=== PATIENT | female | born 1980 | race Hispanic/Latino ===

== ENCOUNTER 2018-09-22 16:31 | Observation (INO) | payer BC, SELFPAY ==
[~2018-09-22 16:31] MED LIST: ISOVUE-370 76%-LOCM 1 ML ONE
--- NOTE | 2018-09-22 17:13 | RAD ---
2 VIEW CHEST: Date: 09/22/18 HISTORY: Shortness of breath. Question PE. FINDINGS: Lung celis are clear. No infiltrate. Heart and mediastinum unremarkable. IMPRESSION: Unremarkable chest. POS: [facility]
[2018-09-22 17:31] LABS: Hemoglobin 10.2 g/dL (12.0-16.0); Mean Corpuscular HGB CONC 31.7 g/dL (32.0-36.0); Mean Corpuscular Hemoglobin 22.2 pg (27.0-31.0); Mean Corpuscular Volume 70.2 fL (78.0-98.0); Platelet Count 305 thou/uL (130-400); RBC Distribution Width 16.6 % (11.5-14.5); Red Blood Cell (RBC) Count 4.59 mill/uL (4.20-5.40); White Blood Cell (WBC) Count 8.1 thou/uL (4.8-10.8)
[2018-09-22 17:50] LABS: #Eosinphils 0.6 thou/uL (0.0-0.7); #Lymphocytes 1.7 thou/uL (1.20-3.40); #Monocytes 0.5 thou/uL (0.11-0.59); #Neutrophils 5.3 thou/uL (1.40-6.50); %Basophils 0.4 % (0.0-1.0); %Eosinophils 6.9 % (0.0-10.0); %Lymphocytes 21.3 % (21.0-51.0); %Monocytes 6.3 % (0.0-10.0); %Neutrophils 65.1 % (42.0-75.0); Anisocytosis SLIGHT = 6-15 cells (100X) (0-5/hpf); Hypochromia SLIGHT = 6-15 cells (100X) (0-5/hpf); MDiff Complete? YES; Microcytosis SLIGHT = 6-15 cells (100X) (0-5/hpf); PLT Morphology Comment Appears Adequate; Poikilocytosis SLIGHT = 6-15 cells (100X) (0-5/hpf)
[2018-09-22 17:51] LABS: ALT (SGPT) 25 U/L (8-55); AST (SGOT) 25 U/L (5-34); Albumin 4.1 g/dL (3.5-5.0); Alkaline Phosphatase 65 U/L (40-150); Anion Gap 12 mmol/L (10-20); BUN (Urea Nitrogen) 12 mg/dL (7.0-18.7); Bilirubin, Total 0.4 mg/dL (0.2-1.2); Calc. Creatinine Clearance 0 mL/min (70-130); Calcium 9.3 mg/dL (7.8-10.44); Carbon Dioxide 23 mmol/L (22-29); Chloride 107 mmol/L (98-107); Estimated GFR-MDRD 61; Globulin 3.5 g/dL (2.4-3.5); Glucose 82 mg/dL (70-105); Potassium 3.6 mmol/L (3.5-5.1); Protein, Total 7.6 g/dL (6.0-8.3); Sodium 138 mmol/L (136-145)
[2018-09-22 17:54] LABS: Troponin I Less than 0.010 ng/mL (< 0.028)
[2018-09-22 18:17] LABS: PTT 30.9 SEC (22.9-36.1); Prothrombin Time 13.4 SEC (12.0-14.7)
[2018-09-22 18:18] LABS: D-Dimer Test 0.51 *mcg/mL (0.27-0.43)
[2018-09-22 19:02] LABS: BHCG - Serum Negative (NEGATIVE); Pregs Control Background? CLEAR/WHITE (CLR/WHITE); Pregs Control Bar Appear? YES (CONTROL BAR)
--- NOTE | 2018-09-22 20:26 | CT ---
CT ANGIOGRAM CHEST WITH CONTRAST: HISTORY: Shortness of breath. COMPARISON: Radiograph from the same day. TECHNIQUE: CT angiogram chest performed after the intravenous administration of contrast, with 3D rendering prov ided. FINDINGS: Evaluation for embolism is severely limited due to the phase of contrast. With this limitation, ther e is no proximal segmental pulmonary arterial filling defect. Heart size is enlarged. No pericardia l effusion. Pulmonary trunk size is not enlarged. Aortic contour is nonaneurysmal. No significant pericardial effusion. There is reflux of contrast within the suprahepatic IVC, as well as the hepati c veins. The lungs are clear. No focal air space consolidation, pneumothorax, or effusion. No thoracic spine compression fracture. The sternum and manubrium are intact. No acute rib fracture . IMPRESSION: 1. Within the limits of this examination, no proximal segmental pulmonary arterial filling defect. 2. Abnormal reflux of contrast within the suprahepatic inferior vena cava and the hepatic vein, sugg esting some diastolic dysfunction, as well as some cardiomegaly. Non-emergent echocardiogram may be beneficial in this patient. POS: [facility]
[2018-09-22] MEDS ORDERED: Furosemide 20 MG/2 ML VIAL ONE (21:24)
[2018-09-22] MEDS ORDERED: Nitroglycerin 2% Ointment 1 INCH/1 GM Packet ONE (21:24)
--- NOTE | 2018-09-22 23:06 | PDOC.FPRHP ---
- History of Present Illness Chief Complaint: SOB History of Present Illness: 38 yo F presents for worsening SOB since Tuesday. SOB is worse with walking around and laying flat having to use multiple pillows to sleep. This past month she has been more immobilized from having to wear a boot on her right foot due to an ankle sprain. She denies any chest congestion or productive cough. Due to worsening of symptoms she went to [facility] this morning and was seen by Drs. Currie and Julia. There was concern for PE so she was advised to come to the ED for further workup. At time of admission patient denies any recent leg swelling, however she reported left sided chest pain with left arm numbness and tingling. No nausea, diaphoresis or radiation of pain. No improvement with rest or nitro paste given in ED. She has undergone a cardiac workup last hospitalization for suspected stroke which was all negative. Echo from a year ago showed diastolic dysfx with EF 55-60%. Patient also has PMH of anxiety in which she reports is well controlled on her home meds. Denies any recent life stressors. She also reports left ankle pain tender with palpation that she noticed when being examined in the ED. No redness, warmth or inc. swelling. ED Course: Lasix 20mg x1, nitro paste - Allergies/Adverse Reactions Allergies Allergy/AdvReac Type Severity Reaction Status Date / Time No Known Allergies Allergy Verified 06/16/16 19:42 - Home Medications Medication Instructions Recorded Confirmed Type Cyclobenzaprine [Flexeril] 10 mg PO HS 05/21/17 09/23/18 History Levothyroxine Sodium [Synthroid] 125 mcg PO 0600 #30 tab 05/22/17 09/23/18 Rx Citalopram [CeleXA] 10 mg PO DAILY 09/23/18 09/23/18 History Lisinopril 10 mg PO DAILY 09/23/18 09/23/18 History traMADol HCl [Ultram] 50 mg PO TID PRN 09/23/18 09/23/18 History - History PMHx: depression, anxiety, HTN, IBS, Hypothyroidism PSHx: back surgeries FHx: negative for blood clots, unrmk Social: denies etoh, drug use. Former 13 pack year history; quit 1 year ago. - Review of Systems General: denies: fever/chills, weight/appetite/sleep changes Eyes: denies: vision changes ENT: denies: nasal congestion, rhinorrhea Respiratory: reports: cough, shortness of breath. denies: congestion Cardiovascular: reports: chest pain, orthopnea. denies: palpitation, edema Gastrointestinal: denies: nausea, vomiting, diarrhea, constipation Genitourinary: denies: dysuria, discharge Skin: denies: rashes, lesions, jaundice Musculoskeletal: denies: tenderness, stiffness, swelling Neurological: denies: syncope, seizure Psychological: reports: anxiety. denies: depression - Vital signs BP: [128/93] HR: [67 RR: [31] Tmax: [98] Pox: [96]% on [RA] Wt: [129] - Physical Exam Constitutional: awake, alert and oriented, other (anxious appearing, shallow breathing) HEENT: normocephalic and atraumatic, PERRLA, EOMI, TM's clear and intact Neck: supple, FROM, trachea midline, no LAD Chest: no lesions, other (tender to palpation along left chest wall) Heart: no edema Lungs: CTAB, good air movement, no rales/rhonchi, no wheezing Abdomen: soft, non-tender Musculoskeletal: normal structure, normal tone -Musculoskeletal: tenderness along left anterior ankle, no pitting edema, both legs roughly same size equally Neurological: no focal deficit, CN II-XII intact Skin: no rash/lesions, good turgor Heme/Lymphatic: no unusual bruising or bleeding, no purpura Psychiatric: good judgment and insight FMR H&P: Results - Labs Result Diagrams: 09/23/18 01:50 09/23/18 01:50 Lab results: WBC 8.1 thou/uL (4.8-10.8) 09/22/18 17:18 Hgb 10.2 g/dL (12.0-16.0) L 09/22/18 17:18 Hct 32.2 % (36.0-47.0) L 09/22/18 17:18 MCV 70.2 fL (78.0-98.0) L 09/22/18 17:18 Plt Count 305 thou/uL (130-400) 09/22/18 17:18 Neutrophils % 65.1 % (42.0-75.0) 09/22/18 17:18 Sodium 138 mmol/L (136-145) 09/22/18 17:18 Potassium 3.6 mmol/L (3.5-5.1) 09/22/18 17:18 Chloride 107 mmol/L (98-107) 09/22/18 17:18 Carbon Dioxide 23 mmol/L (22-29) 09/22/18 17:18 BUN 12 mg/dL (7.0-18.7) 09/22/18 17:18 Creatinine 1.02 mg/dL (0.6-1.1) 09/22/18 17:18 Glucose 82 mg/dL (70-105) 09/22/18 17:18 Calcium 9.3 mg/dL (7.8-10.44) 09/22/18 17:18 Total Bilirubin 0.4 mg/dL (0.2-1.2) 09/22/18 17:18 AST 25 U/L (5-34) 09/22/18 17:18 ALT 25 U/L (8-55) 09/22/18 17:18 Alkaline Phosphatase 65 U/L (40-150) 09/22/18 17:18 B-Natriuretic Peptide 18.0 pg/mL (0-100) 09/22/18 17:18 Serum Total Protein 7.6 g/dL (6.0-8.3) 09/22/18 17:18 Albumin 4.1 g/dL (3.5-5.0) 09/22/18 17:18 - EKG Interpretation EKG: NSR - Radiology Interpretation Chest x-ray Status: image reviewed by me, report reviewed by me FMR H&P: A/P - Problem List (1) Dyspnea Current Visit: Yes Status: Acute Code(s): R06.00 - DYSPNEA, UNSPECIFIED (2) Anxiety Current Visit: Yes Status: Acute Code(s): F41.9 - ANXIETY DISORDER, UNSPECIFIED (3) Chest pain Current Visit: No Status: Acute Code(s): R07.9 - CHEST PAIN, UNSPECIFIED (4) Hypothyroid Current Visit: No Status: Chronic Code(s): E03.9 - HYPOTHYROIDISM, UNSPECIFIED (5) Obesity Current Visit: No Status: Chronic Code(s): E66.9 - OBESITY, UNSPECIFIED Qualifiers: Obesity type: due to excess calories (6) Hypertension Current Visit: Yes Status: Acute Code(s): I10 - ESSENTIAL (PRIMARY) HYPERTENSION (7) IBS (irritable bowel syndrome) Current Visit: Yes Status: Acute - Plan 1. Dysnpea due to suspected CHF exacerbation vs. anxiety -Lasix 20mg x1 in ED. Currently non-hypoxic on RA. BNP nml -Echo in 2017 showed diastolic dysfx with preserved EF at 55-60% -Will complete cardiac workup to r/o as etiology, will trend trops -Due to hx of diastolic dysfx will give lasix x1, strict I/O , daily weights, reassess with echo 2. Atypical chest pain -EKG nml, trops negative x1 -likely due to anxiety or CHF exacerbation -will trend trops to completion -will give ativan x1 3. HTN -BPs stable -continue home lisinopril 4. Hypothyroidism -home dose 150mcg, last hospital d/c dosage 175mcg -will recheck TSH since last one was 1 yr ago and adjust meds as needed -continue home meds for now 5. Anxiety -continue home citalopram 6. Depression -continue home meds 7. IBS -MD aware 8. CKD3 -Will continue to monitor dvt ppx: lovenox Dispo: <2 midnights FMR H&P: Upper Level - Pertinent history 38HF p/w concern for PE after being evaluated in [facility] this afternoon. She has had worsening SOB and RANGEL noticed by patient and family members for roughly one week now. At her appointment, it was felt she may have a PE and she was instructed to go straight to the ED for evaluation. She has been having some orthopnea and dull superficial chest pain as well. She was in a boot for a recent ankle sprain and so has been more immobile than usual. ED doc concerned for CHF given negative PE w/u. A TTE from one year ago shows diastolic dysfunction with an EF of 55-60%. Hx of anxiety attacks in the past, currently only being treated with an SSRI. ER: Lasix 20mg IV, nitro-bid 1 inch, ASA 325mg - Pertinent findings Vitals: 125/77 mmHg 67 bpm 18 breaths/m 98.5F 98% on RA Gen: mild distress from SOB CV: RRR; no murmurs Pulm: CTA-B Abd: soft; nonTTP; no guarding Skin: no pitting edema of BLE MSK: reproducible CP on palpation CXR: no acute pathology; no vascular congestion CTA chest: negative for PE EKG: NSR D-dimer: 0.51 - Plan Date/Time: 09/22/18 2372 1. Suspected CHF: Classic constellation of congestive symptoms. TTE last year showed normal EF with E/A flow reversal suggestive of diastolic dysfunction. CTA chest is negative for PE. Given her positive D-dimer and recent immobilization we will do venous US of bilateral LE. TTE for the morning to assess EF and grade of diastolic dysfunction. Strict I/O's with daily weights. Will give an additional dose of IV lasix given her continued SOB. DDX includes anxiety as she has been hospitalized twice before with stroke like symptoms. Each time her extensive w/u was negative. She was also admitted for an ACS r/o that was negative as well. Ativan PRN available upon admission. Her chest pain 2. Reproducible CP: MSK based on PE. Treat with NSAIDS. Trops negative with normal EKG and prior history of costochondritis 3. Hypothyroidism: recheck TSH and restart synthroid 4. Depression: continue home SSRI 5. Microcytic Anemia: chronic iron deficiency anemia. Hg at baseline I, Иван Benedict, have evaluated this patient and agree with findings/plan as outlined by general internal medicine doctor resident. Pertinent changes/additions are listed here. Attending Addendum - Attending Addendum Date/Time: 09/23/18 [id number] I personally evaluated the patient and discussed the management with Dr. Adams/ Jak. I agree with the History, Examination, Assessment and Plan documented above with any addition or exceptions noted below. Here for concern of HFpEF worsening and severe hypothyroidism. Echo and med mgmt as above.
[2018-09-22 23:53] LABS: Troponin I Less than 0.010 ng/mL (< 0.028)
[2018-09-23] MEDS ORDERED: Acetaminophen 325 MG TAB PO PRN (00:06)
[2018-09-23] MEDS ORDERED: Lorazepam 1 MG TAB PO PRN (00:58)
[2018-09-23] MEDS ORDERED: Nitroglycerin 0.4 MG TAB (25 Tab Bottle) SL PRN (01:06)
[2018-09-23] MEDS ORDERED: Furosemide 20 MG TAB PO SCH (01:15)
[2018-09-23 01:27] VITALS: BMI 52.0
[2018-09-23] MEDS: Acetaminophen 325 MG TAB PO PRN (02:16)
[2018-09-23 02:26] LABS: Troponin I Less than 0.010 ng/mL (< 0.028)
[2018-09-23 04:26] LABS: #Basophils 0.1 thou/uL (0.0-0.2); #Eosinphils 0.5 thou/uL (0.0-0.7); #Lymphocytes 2.1 thou/uL (1.20-3.40); #Monocytes 0.6 thou/uL (0.11-0.59); #Neutrophils 5.9 thou/uL (1.40-6.50); %Basophils 0.9 % (0.0-1.0); %Eosinophils 5.6 % (0.0-10.0); %Lymphocytes 23.2 % (21.0-51.0); %Monocytes 6.5 % (0.0-10.0); %Neutrophils 63.8 % (42.0-75.0); Mean Corpuscular HGB CONC 31.2 g/dL (32.0-36.0); Mean Corpuscular Hemoglobin 22.1 pg (27.0-31.0); Mean Corpuscular Volume 70.8 fL (78.0-98.0); Mean Platelet Volume 9.7 fL (7.4-10.4); Platelet Count 271 thou/uL (130-400); Red Blood Cell (RBC) Count 4.54 mill/uL (4.20-5.40); White Blood Cell (WBC) Count 9.2 thou/uL (4.8-10.8)
[2018-09-23 04:31] LABS: Anion Gap 11 mmol/L (10-20); BUN (Urea Nitrogen) 11 mg/dL (7.0-18.7); Calc. Creatinine Clearance 140 mL/min (70-130); Carbon Dioxide 22 mmol/L (22-29); Chloride 107 mmol/L (98-107); Estimated GFR-MDRD 55; Glucose 119 mg/dL (70-105); Potassium 3.2 mmol/L (3.5-5.1); Sodium 137 mmol/L (136-145)
[2018-09-23] MEDS ORDERED: diphenhydrAMINE 50 MG/ML VIAL IVP SCH (04:45)
[2018-09-23] MEDS ORDERED: Metoclopramide HCl 10 MG/2 ML VIAL IVP SCH (04:45)
[2018-09-23] MEDS ORDERED: Levothyroxine Sodium 125 MCG TAB PO SCH (06:00)
--- NOTE | 2018-09-23 06:14 | PDOC.FM ---
- Subjective Subjective: Reports chest pain stopped around 5am this morning. Endorses SOB, and orthopnea. She has hypothyroidism, reports missing synthroid 1-2x per week. No other questions or concerns this AM. - Objective MAR Reviewed: Yes Vital Signs & Weight: Vital Signs (12 hours) Temp Pulse Resp BP Pulse Ox 09/23/18 04:04 97.7 F 66 18 126/75 98 09/22/18 23:58 98.4 F 62 24 H 119/72 98 Weight Weight 129.138 kg I&O: 09/21/18 09/22/18 09/23/18 06:59 06:59 06:59 Intake Total 130 Output Total 150 Balance -20 Result Diagrams: 09/23/18 01:50 09/23/18 01:50 <Zaida Saha - Last Filed: 09/23/18 09:57> - Objective Vital Signs & Weight: Vital Signs (12 hours) Temp Pulse Resp BP BP Pulse Ox 09/23/18 07:30 97.4 F L 58 L 16 112/64 97 09/23/18 04:04 97.7 F 66 18 126/75 98 09/22/18 23:58 98.4 F 62 24 H 119/72 98 Weight Weight 129.138 kg I&O: 09/22/18 09/23/18 09/24/18 06:59 06:59 06:59 Intake Total 130 200 Output Total 150 100 Balance -20 100 Result Diagrams: 09/23/18 01:50 09/23/18 01:50 <Wander Chang - Last Filed: 09/23/18 10:25> Phys Exam - Physical Examination Constitutional: NAD Neck: supple Respiratory: no wheezing, clear to auscultation bilateral Cardiovascular: RRR, no significant murmur Gastrointestinal: soft, non-tender, positive bowel sounds Musculoskeletal: no edema, pulses present Psychiatric: normal affect, A&O x 3 Skin: cap refill <2 seconds <Zaida Saha - Last Filed: 09/23/18 09:57> Dx/Plan (1) Anxiety Code(s): F41.9 - ANXIETY DISORDER, UNSPECIFIED Status: Acute (2) Dyspnea Code(s): R06.00 - DYSPNEA, UNSPECIFIED Status: Acute (3) Hypertension Code(s): I10 - ESSENTIAL (PRIMARY) HYPERTENSION Status: Acute (4) IBS (irritable bowel syndrome) Status: Acute (5) Chest pain Code(s): R07.9 - CHEST PAIN, UNSPECIFIED Status: Acute (6) Hypothyroid Code(s): E03.9 - HYPOTHYROIDISM, UNSPECIFIED Status: Chronic - Plan Plan: Dysnpea due to suspected CHF exacerbation vs anxiety - Lasix 20mg x1 in ED. Currently non-hypoxic on RA. BNP nml - Echo 2017: diastolic dysfx, EF at 55-60% - Trops neg x3, BNP 18 - CXR nml - CTA with abnormal reflux of contrast within suprahepatic inferior vena cava and hepatic v. suggestive of some diastolic dysfunction. Cardiomegaly - Strict I/O, daily weights, Fluid restriction - Echo today Atypical chest pain - EKG nml, trops negative x3 - likely 2/2 to anxiety or CHF exacerbation - s/p Ativan x1 - Stress test in 2016 with some reversible ischemia will repeat stress today - NPO until after stress test Hypokalemia - 3.2 - Will replace with KCl 40 BID PO Elevated D-Dimer - D-dimer 0.51 - CTA: Limited exam, no proximal segmental pulmonary arterial filling defect HTN -Continue home lisinopril Hypothyroidism - TSH: 98.79 - Will increase synthroid dose to 175mcg Anxiety -continue home citalopram Depression - Continue home meds IBS CKD3 - Continue to monitor with BMP Code Status: DVT ppx: lovenox <Zaida Saha - Last Filed: 09/23/18 09:57> (1) Dyspnea Code(s): R06.00 - DYSPNEA, UNSPECIFIED Status: Acute (2) Anxiety Code(s): F41.9 - ANXIETY DISORDER, UNSPECIFIED Status: Acute (3) Chest pain Code(s): R07.9 - CHEST PAIN, UNSPECIFIED Status: Acute (4) Hypothyroid Code(s): E03.9 - HYPOTHYROIDISM, UNSPECIFIED Status: Chronic (5) Obesity Code(s): E66.9 - OBESITY, UNSPECIFIED Status: Chronic Qualifiers: Obesity type: due to excess calories (6) Hypertension Code(s): I10 - ESSENTIAL (PRIMARY) HYPERTENSION Status: Acute (7) IBS (irritable bowel syndrome) Status: Acute <Wander Chang - Last Filed: 09/23/18 10:25> Attending Addendum - Attending Addendum Date/Time: 09/23/18 1024 I personally evaluated the patient and discussed the management with Dr. Saha. I agree with the History, Examination, Assessment and Plan documented above with any addition or exceptions noted below. Patient with history of severe hypothyroidism and possible dCHF here with chest pain and increasing SOB. Obtaining Echo and stress test today. She is noncompliant with synthroid therapy which could absolutely be resulting in some of her symptoms. Increase Synthroid today. Encourage ambulation and await stress testing results. Feeling better overall. <Wander Chang R - Last Filed: 09/23/18 10:25>
[2018-09-23] MEDS ORDERED: Levothyroxine 175 MCG TAB PO SCH (06:30)
[2018-09-23] MEDS ORDERED: Levothyroxine Sodium 50 MCG TAB PO SCH (08:00)
[2018-09-23] MEDS: Enoxaparin Sodium 40 MG/0.4 ML SYRINGE SC SCH (08:24)
[2018-09-23] MEDS: Potassium Chloride 20 MEQ TAB PO SCH ×2 (08:24→16:54)
[2018-09-23] MEDS: Citalopram 10 MG TAB PO SCH (08:24)
[2018-09-23] MEDS: Lisinopril 10 MG TAB PO SCH (08:24)
[2018-09-23 09:35] LABS: Cardiac Risk 3.6 (Less than 4.5)
--- NOTE | 2018-09-23 10:28 | ULT ---
LEFT LOWER EXTREMITY VENOUS DOPPLER: Date: 09/23/18 PROVIDED CLINICAL HISTORY: Left lower extremity pain. FINDINGS: Segundo scale and color Doppler sonography with spectral analysis was performed of the left common femor al, femoral, popliteal, posterior tibial, greater saphenous, and profunda femoral veins, demonstratin g a normal sonographic appearance to each. Fluid collection in the left popliteal fossa statistically reflects a Andino's cyst. IMPRESSION: No sonographic evidence for left lower extremity deep venous thrombosis. POS: [facility]
[2018-09-23] MEDS ORDERED: Cyclobenzaprine 10 MG TAB PO SCH (21:00)
[2018-09-24] MEDS: Acetaminophen 325 MG TAB PO PRN (04:08)
[2018-09-24 05:53] LABS: #Eosinphils 0.9 thou/uL (0.0-0.7); #Lymphocytes 1.8 thou/uL (1.20-3.40); #Monocytes 0.6 thou/uL (0.11-0.59); #Neutrophils 5.2 thou/uL (1.40-6.50); %Basophils 0.5 % (0.0-1.0); %Eosinophils 10.4 % (0.0-10.0); %Lymphocytes 20.9 % (21.0-51.0); %Monocytes 6.9 % (0.0-10.0); %Neutrophils 61.3 % (42.0-75.0); Hemoglobin 9.9 g/dL (12.0-16.0); Mean Corpuscular HGB CONC 30.2 g/dL (32.0-36.0); Mean Corpuscular Hemoglobin 22.2 pg (27.0-31.0); Mean Corpuscular Volume 73.6 fL (78.0-98.0); Mean Platelet Volume 9.6 fL (7.4-10.4); Platelet Count 263 thou/uL (130-400); RBC Distribution Width 17.4 % (11.5-14.5); Red Blood Cell (RBC) Count 4.46 mill/uL (4.20-5.40); White Blood Cell (WBC) Count 8.5 thou/uL (4.8-10.8)
[2018-09-24] MEDS ORDERED: Levothyroxine 175 MCG TAB PO SCH (06:00)
[2018-09-24 06:18] LABS: Anion Gap 12 mmol/L (10-20); BUN (Urea Nitrogen) 13 mg/dL (7.0-18.7); Calc. Creatinine Clearance 166 mL/min (70-130); Calcium 8.7 mg/dL (7.8-10.44); Carbon Dioxide 20 mmol/L (22-29); Chloride 108 mmol/L (98-107); Estimated GFR-MDRD 67; Glucose 86 mg/dL (70-105); Sodium 135 mmol/L (136-145)
--- NOTE | 2018-09-24 06:23 | PDOC.FM ---
- Subjective Subjective: Feels well. Denies SOB at rest or Chest pain. She does endorse some SOB with exertion. - Objective MAR Reviewed: Yes Vital Signs & Weight: Vital Signs (12 hours) Temp Pulse Resp BP BP Pulse Ox 09/24/18 04:00 97.8 F 72 18 112/58 L 95 09/23/18 23:25 97.4 F L 62 18 112/55 L 94 L 09/23/18 19:45 97.7 F 68 20 123/56 L 96 Weight Weight 129.501 kg I&O: 09/22/18 09/23/18 09/24/18 06:59 06:59 06:59 Intake Total 130 1250 Output Total 150 1300 Balance -20 -50 Result Diagrams: 09/24/18 05:39 09/24/18 05:39 <Zaida Saha - Last Filed: 09/24/18 07:53> - Objective Vital Signs & Weight: Vital Signs (12 hours) Temp Pulse Resp BP BP Pulse Ox 09/24/18 07:11 98.0 F 75 16 120/62 98 09/24/18 04:00 97.8 F 72 18 112/58 L 95 09/23/18 23:25 97.4 F L 62 18 112/55 L 94 L Weight Weight 129.501 kg I&O: 09/23/18 09/24/18 09/25/18 06:59 06:59 06:59 Intake Total 130 1250 Output Total 150 1300 Balance -20 -50 Result Diagrams: 09/24/18 05:39 09/24/18 05:39 <Wander Chang - Last Filed: 09/24/18 09:59> Phys Exam - Physical Examination Constitutional: NAD Neck: supple Respiratory: no wheezing, clear to auscultation bilateral Cardiovascular: RRR, no significant murmur Gastrointestinal: soft, non-tender, positive bowel sounds Musculoskeletal: no edema, pulses present Psychiatric: normal affect, A&O x 3 Skin: cap refill <2 seconds <Zaida Saha - Last Filed: 09/24/18 07:53> Dx/Plan (1) Anxiety Code(s): F41.9 - ANXIETY DISORDER, UNSPECIFIED Status: Acute (2) Dyspnea Code(s): R06.00 - DYSPNEA, UNSPECIFIED Status: Acute (3) Hypertension Code(s): I10 - ESSENTIAL (PRIMARY) HYPERTENSION Status: Acute (4) IBS (irritable bowel syndrome) Status: Acute (5) Chest pain Code(s): R07.9 - CHEST PAIN, UNSPECIFIED Status: Acute (6) Hypothyroid Code(s): E03.9 - HYPOTHYROIDISM, UNSPECIFIED Status: Chronic - Plan Plan: Dysnpea due to suspected CHF exacerbation vs anxiety - Lasix 20mg x1 in ED. Currently non-hypoxic on RA. BNP nml - Echo 2017: diastolic dysfx, EF at 55-60% - Trops neg x3, BNP 18 - CXR nml - CTA with abnormal reflux of contrast within suprahepatic inferior vena cava and hepatic v. suggestive of some diastolic dysfunction. Cardiomegaly - Strict I/O, daily weights, Fluid restriction - Echo: EF 50-55%, mild MR/TR Atypical chest pain - EKG nml, trops negative x3 - likely 2/2 to anxiety or CHF exacerbation - s/p Ativan x1 - LFTs nml with exception of triglycerides 189 - Stress test in 2016 with some reversible ischemia will repeat stress today - NPO until after part 2 of stress test Hypokalemia, resolved Elevated D-Dimer - D-dimer 0.51 - CTA: Limited exam, no proximal segmental pulmonary arterial filling defect HTN -Continue home lisinopril Hypothyroidism - TSH: 98.79 - Will increase synthroid dose to 175mcg Anxiety -continue home citalopram Depression - Continue home meds IBS CKD3 - Continue to monitor with BMP Code Status: DVT ppx: lovenox Dispo: Likely after Stress test today if normal <Zaida Saha - Last Filed: 09/24/18 07:53> (1) Dyspnea Code(s): R06.00 - DYSPNEA, UNSPECIFIED Status: Acute (2) Anxiety Code(s): F41.9 - ANXIETY DISORDER, UNSPECIFIED Status: Acute (3) Chest pain Code(s): R07.9 - CHEST PAIN, UNSPECIFIED Status: Acute (4) Hypothyroid Code(s): E03.9 - HYPOTHYROIDISM, UNSPECIFIED Status: Chronic (5) Obesity Code(s): E66.9 - OBESITY, UNSPECIFIED Status: Chronic Qualifiers: Obesity type: due to excess calories (6) Hypertension Code(s): I10 - ESSENTIAL (PRIMARY) HYPERTENSION Status: Acute (7) IBS (irritable bowel syndrome) Status: Acute <Wander Chang - Last Filed: 09/24/18 09:59> Attending Addendum - Attending Addendum Date/Time: 09/24/18957 I personally evaluated the patient and discussed the management with Dr. Saha. I agree with the History, Examination, Assessment and Plan documented above with any addition or exceptions noted below. Patient doing well. No evidence for CHF on TTE. Awaiting stress test results today. If unchanged from previous, will plan to discharge home later today and will need continued outpt follow up for her severely untreated hypothyroidism. <Wander Chang - Last Filed: 09/24/18 09:59>
[2018-09-24] MEDS: Citalopram 10 MG TAB PO SCH (08:39)
[2018-09-24] MEDS: Potassium Chloride 20 MEQ TAB PO SCH (08:39)
[2018-09-24] MEDS: Lisinopril 10 MG TAB PO SCH (08:40)
[2018-09-24] MEDS: Enoxaparin Sodium 40 MG/0.4 ML SYRINGE SC SCH (08:40)
--- NOTE | 2018-09-24 11:24 | NM ---
MYOCARDIAL PERFUSION SCAN: The patient was given 10 mCi of technetium labeled sestamibi for rest imaging and 30 mCi for stress i maging. Patient was stressed according to Adenosine protocol. INDICATION: Chest pain. Left ventricle was imaged with SPECT imaging. Attenuation correction images obtained. FINDINGS: There is mild symmetric activity loss seen at the apex on stress and rest images. There is no evidenc e for reversible ischemia. Wall motion appears normal. Ejection fraction recorded at 67%. IMPRESSION: No evidence of reversible ischemia. POS: [facility]
[2018-09-24 11:55] VITALS: BP 133/75; TEMP 97.4
--- NOTE | 2018-09-25 04:34 | DIS-2 ---
DATE OF ADMISSION: 09/22/2018 DATE OF DISCHARGE: 09/24/2018 RESIDENT: Zaida Saha, PGY-1. ADMITTING ATTENDING: Wander Chang M.D. DISCHARGE ATTENDING: Wander Chang M.D. CONSULTATIONS: None. PROCEDURES: 1. Chest x-ray, unremarkable. 2. Chest thorax CTA. No proximal segmental pulmonary arterial filling defect. Abnormal reflux of contrast within the suprahepatic inferior vena cava and hepatic vein suggesting some diastolic dysfunction as well as cardiomegaly. 3. Vascular ultrasound, no evidence for left lower extremity deep venous thrombosis. 4. Echocardiogram: EF estimated at 50%-55%, mild mitral and tricuspid regurg. 5. Nuclear stress test, no evidence of reversible ischemia. Ejection fraction reported at 67%. PRIMARY DIAGNOSES: 1. Atypical chest pain. 2. Anxiety. SECONDARY DIAGNOSES: 1. Hypokalemia, resolved. 2. Elevated D-dimer. 3. Hypertension. 4. Hypothyroidism. 5. Anxiety. 6. Diabetes. 7. Chronic kidney disease 3. DISCHARGE MEDICATIONS: 1. Flexeril 10 mg at bedtime 2. Synthroid 175 at 0600 daily 3. Tramadol 50 mg t.i.d. p.r.n. 4. Lisinopril 10 mg daily DISCONTINUED MEDICATIONS: None. HISTORY OF PRESENT ILLNESS AND HOSPITAL COURSE: Ms. Murdock is a 38-year-old female who presented to the ED for worsening shortness of breath, orthopnea, and chest pain. She was noted to have a stress test on 06/17/2016 showing evidence of mild reversible ischemia in the apex and apical segmental region. Labs were notable for D-dimer of 0.51. CT was performed, negative for pulmonary embolism. Troponins were negative x3. BNP 18. TSH 98.8. The patient reports missing multiple doses of Synthroid per week. Fasting lipid panel notable for triglycerides 189. Echocardiogram was performed showing normal ejection fraction and mild tricuspid and mitral regurgitation. Stress test was performed showing no reversible ischemia. She had mild hypokalemia of 3.2 that resolved with p.o. replacement. Her chronic medical conditions of hypertension, anxiety, depression were managed with home medications. IBS was stable. Chronic kidney disease 3, monitored with daily labs. TSH was drawn to assess hypothyroidism. TSH is 98.79. We increased her Synthroid dose to 175, although patient reports missing multiple doses per week. This will need to be followed up outpatient with her primary care provider. DISPOSITION: Stable. DISCHARGE INSTRUCTIONS: 1. Location: Home. 2. Diet: Low sodium. 3. Activity: No restrictions. 4. Followup: Follow up with PCP within 3-7 days. KEVAN
--- NOTE | 2018-09-25 13:34 | STRESS ---
Acquisition Time: 2018-09-23 10:35:01 Total Exercise Time: 00:04:00 Test Indications: CHEST PAIN Medications: Protocol: ADENOSINE Max HR: 081 BPM 44% of Pred: 182 BPM Max BP: 122/078 mmHG Max Work Load: 1.0 METS RESTING ECG: NORMAL SINUS RHYTHM AT 67 BPM SYMPTOMS: NAUSEA NORMAL BLOOD PRESSURE RESPONSE ECTOPY: WENCKEBACH DURING INFUSION ECG RESPONSE: NO SIGNIFICANT CHANGES.JUNCTIONAL RHYTHM DURING RECOVERY INTERPRETATION: AWAIT NUCLEAR IMAGES FOR DEFINITIVE DIAGNOSIS Confirmed by BRIAN THRASHER ([id number]), web editor RIVAS VINSON ([id number]) on 09/25/2018 1:34:06 PM Referred By: Mirella JEFFERY Confirmed By:BRINA THRASHER
--- NOTE | 2018-09-30 22:10 | EKG ---
Test Reason : DYSPNEA Blood Pressure : / mmHG Vent. Rate : 075 BPM Atrial Rate : 075 BPM P-R Int : 184 ms QRS Dur : 094 ms QT Int : 386 ms P-R-T Axes : 048 011 -05 degrees QTc Int : 431 ms Normal sinus rhythm No STEMI Normal ECG Confirmed by GERMAIN FERRO MD ([id number]), news video editor ALIA TITUS ([id number]) on 09/30/2018 10:09:46 PM Referred By: Confirmed By:GERMAIN FERRO MD
== END 2018-09-24 13:49 | disposition home or self-care (01) ==
LOC: ERS 16:31 → 2SW 22:45
PROVIDERS: ADMIT Student in an Organized Health Care Education/Training Program; ATTEND Student in an Organized Health Care Education/Training Program
DX: R07.89 Other chest pain (principal); F41.9 Anxiety disorder, unspecified; E87.6 Hypokalemia; E03.9 Hypothyroidism, unspecified; E11.22 Type 2 diabetes mellitus with diabetic chronic kidney disease; I12.9 Hypertensive chronic kidney disease with stage 1 through stage 4 chronic kidney disease, or unspecified chronic kidney disease; N18.3 Chronic kidney disease, stage 3 (moderate); K58.9 Irritable bowel syndrome, unspecified; R79.89 Other specified abnormal findings of blood chemistry; Z79.899 Other long term (current) drug therapy
CPT/HCPCS: 36415; 71046; 71275; 78452; 80048; 80053; 80061; 83880; 84443; 84484; 84703; 85025; 85379; 85610; 85730; 93005; 93017; 93306; 96372; 96374; 96375; A9500; G0378; J0153; J1200; J1650; J1940; J2765

== ENCOUNTER 2019-06-19 10:19 | Outpatient (CLI) | payer OTHER | END 2019-06-19 10:20 | disposition home or self-care (01) | LOC: DTY/OP 10:19 | PROVIDERS: ATTEND Specialist | DX: Z01.818 Encounter for other preprocedural examination (principal); E66.01 Morbid (severe) obesity due to excess calories | CPT/HCPCS: 97802 ==

== ENCOUNTER 2019-07-06 07:06 | Outpatient (CLI) | payer OTHER ==
--- NOTE | 2019-07-06 09:09 | ULT ---
SONOGRAM ABDOMEN COMPLETE: Date: 07/06/19 HISTORY: Abdominal pain. FINDINGS: Gallbladder has a normal appearance without evidence of stones. Common duct is 0.3 cm. Liver unremark able without focal mass or intrahepatic biliary dilatation. No free fluid. The spleen, kidneys, and v isualized portions of the abdominal aorta and IVC are unremarkable. Pancreas partially obscured. IMPRESSION: No significant abnormalities are demonstrated. POS: [facility]
--- NOTE | 2019-07-06 09:22 | ULT ---
TRANSABDOMINAL PELVIC ULTRASOUND: DATE: 07/06/2019. PROVIDED CLINICAL HISTORY: Irregular periods. FINDINGS: Transvaginal imaging was refused by the patient. Uterus measures about 7.1 x 5.5 x 3.8 cm and demons trates a grossly unremarkable transabdominal sonographic appearance. The endometrium is not well riana luated. The right and left ovaries are not visualized. There is no evidence for free pelvic fluid. IMPRESSION: Limited exam. POS: TPC
== END 2019-07-06 07:07 | disposition home or self-care (01) ==
LOC: BICULT 07:06
PROVIDERS: ATTEND Family Medicine
DX: R10.9 Unspecified abdominal pain (principal); N92.6 Irregular menstruation, unspecified; R31.0 Gross hematuria
CPT/HCPCS: 76700; 76856; 93976

== ENCOUNTER 2019-07-26 12:54 | Outpatient (CLI) | payer OTHER | END 2019-07-26 12:55 | disposition home or self-care (01) | LOC: DTY/OP 12:54 | PROVIDERS: ATTEND Family Medicine | DX: Z01.818 Encounter for other preprocedural examination (principal); E66.01 Morbid (severe) obesity due to excess calories | CPT/HCPCS: 97802 ==

== ENCOUNTER 2019-08-13 08:39 | Outpatient (CLI) | payer OTHER ==
--- NOTE | 2019-08-13 09:41 | CT ---
CT ABDOMEN AND PELVIS WITH IV CONTRAST 08/13/2019 CLINICAL INFORMATION: Left lower quadrant abdominal pain and swelling. Diarrhea and constipation off and on. COMPARISON: 09/14/2014 Technique: Multiple contiguous axial CT images are obtained through the abdomen and pelvis with IV contrast. Cor onal reformatted images are provided. FINDINGS: Lower Chest: Mild atelectasis is present at the right lung base. Lung bases are otherwise clear. Vessels: The abdominal aorta is normal in caliber without evidence of an aortic dissection. Abdomen: Portal vein:Patent Gallbladder: Within normal limits for CT imaging. Liver: within normal limits. Spleen: within normal limits. Pancreas: within normal limits. Adrenals: within normal limits. Kidneys: within normal limits. Bowel: Normal caliber. Appendix: The appendix is visualized and normal in caliber. Peritoneum: No ascites or free air; no fluid collection. Mesentery and Retroperitoneum: No enlarged mesenteric or retroperitoneal lymph nodes. Abdominal Wall: within normal limits. Pelvis: Reproductive Organs: A 1.8 cm fluid attenuation cystic structure seen in the right adnexal region pro bably due to a dominant follicle or small cyst involving the right ovary. Pelvis within normal limits. Bladder: within normal limits. Bones: Degenerative changes are seen in the spine greater at the lumbosacral junction. There has been no interval change compared to the prior study in 2013. IMPRESSION: No acute findings in the abdomen or pelvis.
--- NOTE | 2019-08-13 17:57 | MRI ---
BRAIN MRI WITH AND WITHOUT CONTRAST: Date: 08-13-19 History: Unilateral facial paresis, essential hypertension. Technique: Multiplanar, multisequence MR imaging of the brain was obtained with and without contrast. FINDINGS: The diffusion weighted imaging demonstrates no evidence for acute infarction. Regional bone marrow signal intensity appears within normal limits. The axial gradient echo imaging demonstrates no evidence for intracranial hemorrhage. There is no midline shift of mass effect. No ventricular enlargement is seen. Arterial flow voids at the axial level of the skull base appear unremarkable on the T2 weighted imagi ng. The post contrast imaging demonstrates no abnormal enhancement within the brain parenchyma. Thin section post contrast imaging with fat saturation was obtained using the cranial nerve protocol. No abnormal enhancement is noted. IMPRESSION: Unremarkable contrast enhanced brain MRI as detailed above. POS: OFF
== END 2019-08-13 08:40 | disposition home or self-care (01) ==
LOC: SCSCT 08:39
PROVIDERS: ATTEND Psychiatry & Neurology Neurology
DX: N92.6 Irregular menstruation, unspecified (principal); G51.0 Bell's palsy; I10 Essential (primary) hypertension; G44.1 Vascular headache, not elsewhere classified; R10.32 Left lower quadrant pain; Z62.810 Personal history of physical and sexual abuse in childhood
CPT/HCPCS: 70553; 74177

== ENCOUNTER 2019-08-24 08:46 | Outpatient (CLI) | payer OTHER | END 2019-08-24 08:47 | disposition home or self-care (01) | LOC: DTY/OP 08:46 | PROVIDERS: ATTEND Family Medicine | DX: Z01.818 Encounter for other preprocedural examination (principal); E66.01 Morbid (severe) obesity due to excess calories | CPT/HCPCS: 97802 ==

== ENCOUNTER 2019-09-06 11:56 | Day surgery (SDC) | payer OTHER ==
[2019-09-05 10:48] VITALS: BMI 48.4
--- NOTE | 2019-09-06 21:10 | OP ---
DATE OF PROCEDURE: 09/06/2019 PROCEDURE PERFORMED: Colonoscopy. PREPROCEDURE DIAGNOSES: 1. Chronic left lower quadrant abdominal pain. 2. History of rectal bleeding. POSTPROCEDURE DIAGNOSES: 1. Exam to cecum; good bowel preparation. 2. No polyp, diverticulosis, or active bleeding site identified. 3. Small hypertrophied anal papilla and small internal hemorrhoid. 4. Otherwise, normal colonoscopy. DESCRIPTION OF PROCEDURE: Written informed consent was obtained. The patient was brought to the endoscopy suite. Total intravenous anesthesia was administered by Dr. Sebas Kimbrough and associates. The patient was placed in the left lateral decubitus position. A digital rectal exam was performed that was unremarkable. A Pentax video colonoscope was inserted through the anal canal and advanced under direct visualization to the cecum. Position in the cecum was verified by clear identification of the appendiceal orifice and the ileocecal valve. The quality of the bowel preparation was good. Each colon segment was examined carefully as the colonoscope was slowly withdrawn from the cecum. Vascular pattern and haustral folds appeared normal. No polyp, vascular ectasia, diverticulum, or active site of bleeding was identified. In the rectum, a retroflexed view demonstrated a small internal hemorrhoid and a few hypertrophied anal papilla. The colon and rectum were then decompressed as the colonoscope was completely removed from the patient. She was transferred to the Day Stay surgery area for postprocedure monitoring. There were no immediate complications. RECOMMENDATIONS: 1. High-fiber, low-fat diet. 2. Metamucil or Citrucel capsules 1 to 2 p.o. daily. 3. Levsin 0.125 mg p.o. q.4 p.r.n. abdominal cramping. 4. Follow up in GI Clinic in 5 to 6 weeks. Job ID: [id number]
== END 2019-09-06 16:40 | disposition home or self-care (01) ==
LOC: SDC 11:56
PROVIDERS: ATTEND Internal Medicine Gastroenterology
PROC: 0DJD8ZZ Inspection of Lower Intestinal Tract, Via Natural or Artificial Opening Endoscopic (ICD-10-PCS; principal; 2019-09-06)
DX: K64.8 Other hemorrhoids (principal); K62.89 Other specified diseases of anus and rectum; K58.9 Irritable bowel syndrome, unspecified; G89.29 Other chronic pain; R10.32 Left lower quadrant pain; R63.5 Abnormal weight gain; F41.9 Anxiety disorder, unspecified; F32.9 Major depressive disorder, single episode, unspecified; I10 Essential (primary) hypertension; E78.00 Pure hypercholesterolemia, unspecified; G47.30 Sleep apnea, unspecified; Z91.018 Allergy to other foods; Z79.899 Other long term (current) drug therapy; Z91.011 Allergy to milk products; Z87.891 Personal history of nicotine dependence

== ENCOUNTER 2019-09-25 09:01 | Outpatient (CLI) | payer OTHER | END 2019-09-25 09:02 | disposition home or self-care (01) | LOC: DTY/OP 09:01 | PROVIDERS: ATTEND Family Medicine | DX: Z01.818 Encounter for other preprocedural examination (principal); E66.01 Morbid (severe) obesity due to excess calories | CPT/HCPCS: 97802 ==

== ENCOUNTER 2019-11-02 09:09 | Outpatient (CLI) | payer OTHER ==
[2019-11-02 10:42] LABS: Hemoglobin A1c 5.1 % (4.0-6.0)
[2019-11-02 10:54] LABS: BHCG - Serum Negative (NEGATIVE); Pregs Control Background? CLEAR/WHITE (CLR/WHITE); Pregs Control Bar Appear? YES (CONTROL BAR)
[2019-11-02 10:56] LABS: ALT (SGPT) 52 U/L (8-55); AST (SGOT) 35 U/L (5-34); Albumin 4.2 g/dL (3.5-5.0); Alkaline Phosphatase 61 U/L (40-110); Anion Gap 13 mmol/L (10-20); BUN (Urea Nitrogen) 17 mg/dL (7.0-18.7); Bilirubin, Total 0.8 mg/dL (0.2-1.2); Calc. Creatinine Clearance 0 mL/min (70-130); Calcium 9.6 mg/dL (7.8-10.44); Carbon Dioxide 26 mmol/L (22-29); Chloride 107 mmol/L (98-107); Estimated GFR-MDRD 73; Globulin 3.1 g/dL (2.4-3.5); Glucose 89 mg/dL (70-105); Potassium 4.9 mmol/L (3.5-5.1); Protein, Total 7.3 g/dL (6.0-8.3); Sodium 141 mmol/L (136-145)
--- NOTE | 2019-11-02 17:59 | EKG ---
Test Reason : Blood Pressure : / mmHG Vent. Rate : 065 BPM Atrial Rate : 065 BPM P-R Int : 172 ms QRS Dur : 090 ms QT Int : 402 ms P-R-T Axes : 000 038 -04 degrees QTc Int : 418 ms Ectopic atrial rhythm. Low voltage QRS Borderline ECG When compared with ECG of 22-SEP-2018 17:11, No significant change was found Confirmed by Aida BAKER ([id number]) on 11/02/2019 5:59:05 PM Referred By: [email or web address] Confirmed By:Aida BAKER
== END 2019-11-02 09:10 | disposition home or self-care (01) ==
LOC: LABBT 09:09
PROVIDERS: ATTEND Specialist
DX: Z01.818 Encounter for other preprocedural examination (principal); E66.01 Morbid (severe) obesity due to excess calories; M25.50 Pain in unspecified joint; I10 Essential (primary) hypertension
CPT/HCPCS: 80053; 83036; 84703; 93005; 93010

== ENCOUNTER 2019-11-02 10:30 | Inpatient (IN) | payer OTHER ==
[2019-11-08] MEDS ORDERED: Heparin 5,000 UNITS/ML VIAL ONE (06:39)
[2019-11-08] MEDS ORDERED: Ketorolac Tromethamine 30 MG/ML VIAL ONE (06:39)
[2019-11-08] MEDS ORDERED: ceFOXitin 2 GM/50 ML Duplex BAG ONE (06:40)
[2019-11-08] MEDS ORDERED: Scopolamine 1.5 mg/72 hour Patch ONE (06:41)
[2019-11-08] MEDS ORDERED: Fentanyl 250 MCG/5 ML VIAL ONE (06:58)
[2019-11-08] MEDS ORDERED: Midazolam HCl 2 mg/2 ml Vial ONE (06:58)
[2019-11-08] MEDS ORDERED: Bupivacaine PF 0.5% 30 ML VIAL ONE (07:19)
[2019-11-08] MEDS ORDERED: Lidocaine 1% w/Epinephrine 1:100K 20 ML VIAL ONE (07:19)
[2019-11-08] MEDS ORDERED: SUGAMMADEX SODIUM 200 MG/2 ML VIAL ONE (09:01)
[2019-11-08] MEDS ORDERED: HYDROmorphone 0.5 MG/0.5 ML SYRINGE ONE (09:21)
[2019-11-08] MEDS ORDERED: D5 1/2 NS w/20 mEq KCL 1,000 ML ONE (09:37)
[2019-11-08] MEDS ORDERED: Fentanyl 100 MCG/2 ML VIAL ONE (09:49)
[2019-11-08] MEDS ORDERED: Ondansetron HCl/PF 4 MG/2 ML Vial IVP PRN (10:03)
[2019-11-08] MEDS ORDERED: Promethazine HCl 25 MG/ML VIAL IM/IV PRN (10:03)
[2019-11-08] MEDS ORDERED: Non-Formulary Medication 1 EACH PO PRN (10:03)
[2019-11-08] MEDS ORDERED: Morphine 2 MG/ML SYRINGE SLOW IVP PRN (10:51)
[2019-11-08] MEDS ORDERED: Hydrocodone-Acetamin 15 ML UDCUP PO PRN (10:51)
[2019-11-08] MEDS ORDERED: Dextrose 5% in Water 1,000 ML IV PRN (10:51)
[2019-11-08] MEDS ORDERED: diphenhydrAMINE 50 MG/ML VIAL IVP PRN (10:51)
[2019-11-08] MEDS ORDERED: Ondansetron PF 4 MG/2 ML Vial IVP PRN (10:51)
[2019-11-08] MEDS ORDERED: hydrALAZINE 20 MG/ML VIAL SLOW IVP PRN (10:51)
[2019-11-08] MEDS ORDERED: Promethazine HCl 25 MG/ML VIAL IM PRN (10:51)
[2019-11-08] MEDS ORDERED: Dextrose 50% Abboject 50 ML SYRINGE SLOW IVP PRN (10:51)
[2019-11-08 11:06] VITALS: BMI 44.4
[2019-11-08] MEDS: D5 1/2 NS w/20 mEq KCL 1,000 ML IV SCH ×2 (11:43→18:36)
[2019-11-08] MEDS: Acetaminophen 1,000 MG in Premix Bag 1 BAG IVPB SCH ×2 (11:43→18:36)
[2019-11-08] MEDS: Ketorolac Tromethamine 30 MG/ML VIAL IVP SCH ×3 (11:43→23:58)
[2019-11-08] MEDS: Morphine 4 MG/ML VIAL SLOW IVP PRN ×4 (13:44→22:20)
--- NOTE | 2019-11-08 13:48 | OP ---
DATE OF PROCEDURE: 11/08/2019 PREOPERATIVE DIAGNOSIS: Morbid obesity. POSTOPERATIVE DIAGNOSES: Morbid obesity with hiatal hernia. PROCEDURE PERFORMED: Laparoscopic vertical sleeve gastrectomy using the ViSiGi device, repair of hiatal hernia. AIRPLANE FUELER: Artemio Brandon, medical student. ANESTHESIA: General endotracheal. INDICATIONS: The patient is a 39-year-old female. She had a preoperative BMI of 48. She lost weight down to a BMI of 44 in preparation for her surgery. She has also taken medication to treat her iron deficiency and her vitamin D deficiency. She is taken to the operating room at this time for vertical sleeve gastrectomy. DESCRIPTION OF OPERATION: Informed consent was obtained. The patient was taken to the operating room where general endotracheal anesthesia was obtained with the patient in supine position. Abdomen was prepped with ChloraPrep and draped in sterile fashion. Local anesthetic was infiltrated and 5 mm supraumbilical incision was created through which Veress needle was passed to the peritoneal cavity and pneumoperitoneum established using carbon dioxide up to a pressure of 15 mmHg. A 5 mm trocar port was passed through this same incision. Laparoscopic camera was passed through this port. Under direct vision, 4 additional ports were placed including bilateral 5 mm subcostal ports, a 12 mm right paramedian port and a 15 mm left paramedian port. A 5 mm epigastric incision was created through which Nathansen retractor was passed into the abdominal cavity and used to retract the left lobe of the liver. The patient was placed into reverse Trendelenburg position. The ViSiGi device was advanced within the stomach and used to decompress this. The pylorus was identified and beginning 4 cm proximal to the pylorus, the omentum and vascular tissue along the greater curvature was divided using the LigaSure in an ascending fashion up to the angle of His. All posterior adhesions were mobilized. The short gastric vessels were carefully divided and then hemostasis was maintained using the LigaSure. Once this was completely mobilized, the ViSiGi was carefully positioned at the level of the pylorus and placed to suction, which was clearly defining the lesser curvature of the stomach. The gastrectomy was then performed using a series of fires of the [place] stapler using a green load followed by a gold load and a series of blue loads until completion of the gastrectomy. The ViSiGi along the lesser curvature was used as a size 36 bougie to guide in the gastric division. Care was taken to avoid narrowing the incisura or the gastroesophageal junction. The integrity of the staple line was then assessed by insufflating gas through the ViSiGi while irrigating along the staple line. There was no evidence of an air leak. There was no evidence of bleeding along the staple line. The resected stomach was then removed through the 15 mm port and the fascia was closed with 0 Vicryl suture using a GraNee needle. I then closed the 12 mm port also using the GraNee needle and 0 Vicryl suture. The Nathansen retractor was removed. All ports and instruments were removed under direct vision. All irrigant was aspirated. Pneumoperitoneum was carefully evacuated. 0.25% Marcaine with epinephrine was infiltrated into each port site. Skin edges approximated with 4-0 Monocryl subcuticular suture. Dermabond was placed externally. There were no complications. The patient tolerated the procedure well and was taken to recovery room in stable condition. FINDINGS: The patient did have a small, but definitely present hiatal hernia. The lashaun was dissected bilaterally and closed with a single interrupted suture of 2-0 Ethibond, which was secured with a Ti-KNOT device. The hiatal hernia was nicely repaired with a single suture. There was an adequate length of intraabdominal esophagus. Other than that, the operation proceeded exactly as typical. There was negligible blood loss. No complications. The patient tolerated the procedure well and was taken to recovery in stable condition. Job ID: [id number]
[2019-11-08] MEDS ORDERED: PROPOFOL 200 MG/20 ML VIAL ONE (13:53)
[2019-11-08] MEDS ORDERED: Dexamethasone 20 MG/5 ML VIAL ONE (13:53)
[2019-11-08] MEDS ORDERED: Rocuronium Bromide 10 MG/ML (10ML VIAL) ONE (13:53)
[2019-11-08] MEDS ORDERED: Ondansetron PF 4 MG/2 ML Vial ONE (13:53)
[2019-11-09] MEDS: Acetaminophen 1,000 MG in Premix Bag 1 BAG IVPB SCH (00:03)
[2019-11-09] MEDS: Morphine 4 MG/ML VIAL SLOW IVP PRN (01:50)
[2019-11-09] MEDS: D5 1/2 NS w/20 mEq KCL 1,000 ML IV SCH ×2 (01:55→12:13)
[2019-11-09 05:48] LABS: #Lymphocytes 1.1 thou/uL (1.20-3.40); #Neutrophils 11.2 thou/uL (1.40-6.50); %Lymphocytes 8.5 % (21.0-51.0); %Monocytes 7.1 % (0.0-10.0); %Neutrophils 84.3 % (42.0-75.0); Hemoglobin 11.5 g/dL (12.0-16.0); Mean Corpuscular HGB CONC 32.6 g/dL (32.0-36.0); Mean Corpuscular Hemoglobin 26.4 pg (27.0-31.0); Mean Corpuscular Volume 80.8 fL (78.0-98.0); Platelet Count 265 thou/uL (130-400); RBC Distribution Width 14.3 % (11.5-14.5); Red Blood Cell (RBC) Count 4.37 mill/uL (4.20-5.40); White Blood Cell (WBC) Count 13.3 thou/uL (4.8-10.8)
[2019-11-09] MEDS ORDERED: Levothyroxine 175 MCG TAB PO SCH (06:00)
[2019-11-09] MEDS: Ketorolac Tromethamine 30 MG/ML VIAL IVP SCH ×2 (06:12→12:06)
[2019-11-09 06:21] LABS: Anion Gap 10 mmol/L (10-20); BUN (Urea Nitrogen) 10 mg/dL (7.0-18.7); Calc. Creatinine Clearance 172 mL/min (70-130); Carbon Dioxide 24 mmol/L (22-29); Chloride 109 mmol/L (98-107); Estimated GFR-MDRD 81; Glucose 111 mg/dL (70-105); Sodium 138 mmol/L (136-145)
[2019-11-09] MEDS ORDERED: Pantoprazole 40 MG VIAL IVP SCH (09:00)
[2019-11-09] MEDS ORDERED: busPIRone HCl 10 MG TAB PO SCH (09:00)
[2019-11-09 12:27] VITALS: BP 134/79; TEMP 97.9
== END 2019-11-09 13:51 | disposition home or self-care (01) | DRG 621 ==
LOC: SURG A 11-08 05:37
PROVIDERS: ADMIT Specialist; ATTEND Specialist
PROC: 0DB64Z3 Excision of Stomach, Percutaneous Endoscopic Approach, Vertical (ICD-10-PCS; principal; 2019-11-08)
PROC: 0BQT4ZZ Repair Diaphragm, Percutaneous Endoscopic Approach (ICD-10-PCS; 2019-11-08)
DX: E66.01 Morbid (severe) obesity due to excess calories (principal); Z68.41 Body mass index [BMI] 40.0-44.9, adult; K44.9 Diaphragmatic hernia without obstruction or gangrene; Z91.018 Allergy to other foods; I10 Essential (primary) hypertension
CPT/HCPCS: 36415; 80048; 85025; 94760; C9113; J0131; J0694; J1100; J1170; J1644; J1885; J2250; J2270; J2405; J2704; J3010; S0020

== ENCOUNTER 2020-05-06 20:26 | Emergency (ER) | payer OTHER ==
[2020-05-06 22:04] LABS: #Basophils 0.1 thou/uL (0.0-0.2); #Eosinphils 0.4 thou/uL (0.0-0.7); #Lymphocytes 2.4 thou/uL (1.20-3.40); #Monocytes 0.3 thou/uL (0.11-0.59); #Neutrophils 4.4 thou/uL (1.40-6.50); %Basophils 1.2 % (0.0-1.0); %Eosinophils 5.7 % (0.0-10.0); %Lymphocytes 31.5 % (21.0-51.0); %Monocytes 4.4 % (0.0-10.0); %Neutrophils 57.1 % (42.0-75.0); Hemoglobin 12.3 g/dL (12.0-16.0); Mean Corpuscular HGB CONC 33.8 g/dL (32.0-36.0); Mean Corpuscular Hemoglobin 29.2 pg (27.0-31.0); Mean Corpuscular Volume 86.5 fL (78.0-98.0); Mean Platelet Volume 7.7 fL (7.4-10.4); Platelet Count 224 thou/uL (130-400); RBC Distribution Width 12.8 % (11.5-14.5); White Blood Cell (WBC) Count 7.7 thou/uL (4.8-10.8)
[2020-05-06 22:26] LABS: ALT (SGPT) 13 U/L (8-55); AST (SGOT) 22 U/L (5-34); Albumin 4.1 g/dL (3.5-5.0); Alkaline Phosphatase 51 U/L (40-110); Anion Gap 12 mmol/L (10-20); BUN (Urea Nitrogen) 17 mg/dL (7.0-18.7); Bilirubin, Total 0.8 mg/dL (0.2-1.2); Calc. Creatinine Clearance 0 mL/min (70-130); Calcium 8.9 mg/dL (7.8-10.44); Carbon Dioxide 24 mmol/L (22-29); Chloride 106 mmol/L (98-107); Estimated GFR-MDRD 48; Globulin 3.1 g/dL (2.4-3.5); Glucose 77 mg/dL (70-105); Potassium 3.9 mmol/L (3.5-5.1); Protein, Total 7.2 g/dL (6.0-8.3); Sodium 138 mmol/L (136-145)
--- NOTE | 2020-05-06 22:42 | CT ---
CT BRAIN WITHOUT CONTRAST: HISTORY: Headache and left-sided numbness FINDINGS: No evidence of acute infarct, hemorrhage, midline shift or abnormal extra-axial fluid collections is seen. The ventricular size is appropriate and the basilar cisterns are patent. The bony calvarium is intact. The visualized paranasal sinuses and mastoid air cells are well aerated. IMPRESSION: No CT evidence of acute intracranial process.
== END 2020-05-07 00:08 | disposition home or self-care (01) ==
LOC: ERS 20:26
DX: R20.2 Paresthesia of skin (principal); R51 Headache; I10 Essential (primary) hypertension; F41.9 Anxiety disorder, unspecified; Z87.891 Personal history of nicotine dependence
CPT/HCPCS: 36415; 70450; 80053; 84443; 85025; 93005

== ENCOUNTER 2020-09-29 07:40 | Outpatient (CLI) | payer OTHER ==
--- NOTE | 2020-09-29 10:23 | MRI ---
EXAM: MRI left shoulder PROVIDED CLINICAL HISTORY: Pain COMPARISON: None FINDINGS: There is partial thickness bursal surface tearing involving the conjoined tendon about 1 cm from the footplate, involving about 50% of tendon fibers thickness. The components of the rotator cuff appear otherwise intact. The long head biceps tendon appears intact and normally located. The glenoid labrum and glenohumeral articular cartilage are suboptimally evaluated in the absence of joint distention, but appear grossly normal. The amount of fluid within the glenohumeral joint appears physiologic. There is greater than physiologic subacromial subdeltoid bursal fluid. Acromioclavicular joint osteoa rthrosis and lateral downsloping of the acromion, narrowing the subacromial space. No focal concerning regional marrow or muscular signal abnormality is evident. IMPRESSION: 1. Partial-thickness bursal surface tear involving the conjoined tendon, involving approximately 50% of tendon fiber thickness. 2. Greater than physiologic subacromial subdeltoid bursal fluid, which may reflect an occult full-thi ckness component to this tear versus bursitis. 3. Acromioclavicular joint osteoarthrosis and lateral downsloping of the acromion, narrowing the suba cromial space. Correlate for subacromial impingement.
== END 2020-09-29 07:41 | disposition home or self-care (01) ==
LOC: SCSMRI 07:40
PROVIDERS: ATTEND Family Medicine
DX: S49.92XD Unspecified injury of left shoulder and upper arm, subsequent encounter (principal); S46.912A Strain of unspecified muscle, fascia and tendon at shoulder and upper arm level, left arm, initial encounter; M19.012 Primary osteoarthritis, left shoulder

== ENCOUNTER 2021-04-13 15:03 | Emergency (ER) | payer OTHER, SELFPAY ==
[~2021-04-13 15:03] MED LIST changes: -ISOVUE-370 76%-LOCM 1 ML ONE; +Iopamidol-370 76% 500 ML 1 ML ONE
[2021-04-13 15:37] LABS: #Lymphocytes 1.8 thou/uL (1.20-3.40); #Monocytes 0.4 thou/uL (0.11-0.59); #Neutrophils 4.7 thou/uL (1.40-6.50); %Basophils 0.3 % (0.0-1.0); %Lymphocytes 26.6 % (21.0-51.0); %Monocytes 5.2 % (0.0-10.0); %Neutrophils 67.9 % (42.0-75.0); Hemoglobin 11.1 g/dL (12.0-16.0); Mean Corpuscular HGB CONC 30.8 g/dL (32.0-36.0); Mean Corpuscular Hemoglobin 23.4 pg (27.0-31.0); Mean Corpuscular Volume 76.1 fL (78.0-98.0); Mean Platelet Volume 7.6 fL (7.4-10.4); Platelet Count 307 thou/uL (130-400); RBC Distribution Width 14.4 % (11.5-14.5); Red Blood Cell (RBC) Count 4.73 mill/uL (4.20-5.40); White Blood Cell (WBC) Count 6.9 thou/uL (4.8-10.8)
[2021-04-13 15:47] LABS: BHCG - Serum Negative (NEGATIVE); Pregs Control Background? CLEAR/WHITE (CLR/WHITE); Pregs Control Bar Appear? YES (CONTROL BAR)
[2021-04-13 16:01] LABS: ALT (SGPT) 15 U/L (8-55); AST (SGOT) 21 U/L (5-34); Alkaline Phosphatase 53 U/L (40-110); Anion Gap 12 mmol/L (10-20); BUN (Urea Nitrogen) 15 mg/dL (7.0-18.7); Bilirubin, Total 0.9 mg/dL (0.2-1.2); Calc. Creatinine Clearance 0 mL/min (70-130); Carbon Dioxide 26 mmol/L (22-29); Chloride 106 mmol/L (98-107); Globulin 3.5 g/dL (2.4-3.5); Glucose 80 mg/dL (70-105); Protein, Total 7.5 g/dL (6.0-8.3); Sodium 140 mmol/L (136-145)
[2021-04-13 16:26] LABS: Bacteria/HPF None Seen HPF (None Seen); Bilirubin Negative (Negative); Blood, Urine Negative (Negative); Clarity Turbid (Clear); Glucose, Urine (Dipstick) Normal (Negative); Ketone, Urine Negative (Negative); Leukocyte 75 Leu/uL (Negative); Nitrite Negative (Negative); Protein, Urine (Dipstick) 30 mg/dL (Neg-Trace); Specific Gravity, Urine 1.033 (1.002-1.036); Squamous Epithelial 0-3 HPF (0-3); pH, Urine 5.5 (5.0-9.0)
[2021-04-13] MEDS ORDERED: Ketorolac Tromethamine 30 MG/ML VIAL ONE (17:58)
[2021-04-13] MEDS ORDERED: Ondansetron PF 4 MG/2 ML Vial ONE (17:58)
[2021-04-13] MEDS ORDERED: Lorazepam 2 MG/ML VIAL ONE (18:15)
[2021-04-13] MEDS ORDERED: cefTRIAXone\\ROCEPHIN 1 GM VIAL ONE (19:34)
[2021-04-14 21:57] LABS: Chlamydia by PCR Not Detected (NotDetected); GC by PCR Not Detected (NotDetected)
== END 2021-04-13 20:14 | disposition home or self-care (01) ==
LOC: ERS 15:03
DX: N39.0 Urinary tract infection, site not specified (principal); Z79.899 Other long term (current) drug therapy; I10 Essential (primary) hypertension; E03.9 Hypothyroidism, unspecified; F17.210 Nicotine dependence, cigarettes, uncomplicated
CPT/HCPCS: 36415; 74177; 80053; 81003; 81015; 84703; 85025; 87480; 87491; 87510; 87591; 87660; 96365; 96375; J0696; J1885; J2060; J2405; Q9967

== ENCOUNTER 2022-11-06 13:10 | Emergency (ER) | payer SELFPAY ==
[2022-11-06] MEDS ORDERED: Ketorolac Tromethamine 30 MG/ML VIAL ONE (14:15)
[2022-11-06] MEDS ORDERED: Ondansetron PF 4 MG/2 ML Vial ONE (14:15)
[2022-11-06 14:50] LABS: #Lymphocytes 1.6 thou/uL (1.20-3.40); #Monocytes 0.2 thou/uL (0.11-0.59); #Neutrophils 2.9 thou/uL (1.40-6.50); %Basophils 0.1 % (0.0-1.0); %Lymphocytes 33.8 % (21.0-51.0); %Monocytes 4.5 % (0.0-10.0); %Neutrophils 61.6 % (42.0-75.0); Hemoglobin 7.9 g/dL (12.0-16.0); Mean Corpuscular HGB CONC 30.8 g/dL (32.0-36.0); Mean Corpuscular Volume 67.9 fl (78.0-98.0); Mean Platelet Volume 8.9 fL (7.4-10.4); Platelet Count 303 10x3/uL (130-400); RBC Distribution Width 15.6 % (11.5-14.5); Red Blood Cell (RBC) Count 3.77 mill/uL (4.20-5.40); White Blood Cell (WBC) Count 4.7 10x3/uL (4.8-10.8)
[2022-11-06 15:03] LABS: ALT (SGPT) 29 U/L (8-55); AST (SGOT) 52 U/L (5-34); Albumin 4.3 g/dL (3.5-5.0); Alkaline Phosphatase 41 U/L (40-110); Anion Gap 11 mmol/L (10-20); BUN (Urea Nitrogen) 15 mg/dL (7.0-18.7); Bilirubin, Total 0.8 mg/dL (0.2-1.2); Calc. Creatinine Clearance 0 mL/min (70-130); Calcium 8.9 mg/dL (7.8-10.44); Carbon Dioxide 25 mmol/L (22-29); Chloride 105 mmol/L (98-107); Estimated GFR 54; Globulin 3.3 g/dL (2.4-3.5); Glucose 74 mg/dL (70-105); Lipase 28 U/L (8-78); Potassium 3.9 mmol/L (3.5-5.1); Protein, Total 7.6 g/dL (6.0-8.3); Sodium 137 mmol/L (136-145)
[2022-11-06 15:06] LABS: Anisocytosis SLIGHT = 6-15 cells (100X) (0-5/hpf); Hypochromia SLIGHT = 6-15 cells (100X) (0-5/hpf); MDiff Complete? YES; Microcytosis SLIGHT = 6-15 cells (100X) (0-5/hpf); Ovalocytes SLIGHT = 2-5 cells (100X) (0-1/hpf); Platelet Morphology Comment Appears Adequate; Polychromasia SLIGHT = 2-3 cells (100X) (0-2/hpf)
[2022-11-06 15:06] LABS: Bilirubin Negative (Negative); Blood, Urine Negative (Negative); Clarity Clear (Clear); Glucose, Urine (Dipstick) Normal (Negative); Ketone, Urine Negative (Negative); Leukocyte Negative Leu/uL (Negative); Nitrite Negative (Negative); Protein, Urine (Dipstick) Negative (Neg-Trace); Specific Gravity, Urine 1.024 (1.002-1.036); Urobilinogen Normal mg/dL (Less than 2)
== END 2022-11-06 18:07 | disposition home or self-care (01) ==
LOC: ERS 13:10
DX: D64.9 Anemia, unspecified (principal); I10 Essential (primary) hypertension; E03.9 Hypothyroidism, unspecified; F17.210 Nicotine dependence, cigarettes, uncomplicated
CPT/HCPCS: 70450; 71045; 80053; 81003; 82274; 83605; 83690; 84484; 85025; 93005; 96374; 96375; J1885; J2405

== ENCOUNTER 2022-11-11 11:38 | Inpatient (IN) | payer SELFPAY ==
[2022-11-11 12:20] LABS: #Basophils 0.1 thou/uL (0.0-0.2); #Lymphocytes 1.6 thou/uL (1.20-3.40); #Monocytes 0.3 thou/uL (0.11-0.59); #Neutrophils 3.4 thou/uL (1.40-6.50); %Basophils 1.3 % (0.0-1.0); %Eosinophils 0.1 % (0.0-10.0); %Lymphocytes 30.2 % (21.0-51.0); %Monocytes 4.8 % (0.0-10.0); %Neutrophils 63.7 % (42.0-75.0); Hemoglobin 7.6 g/dL (12.0-16.0); Mean Corpuscular HGB CONC 29.4 g/dL (32.0-36.0); Mean Corpuscular Hemoglobin 20.2 pg (27.0-31.0); Mean Corpuscular Volume 68.5 fl (78.0-98.0); Platelet Count 292 10x3/uL (130-400); Red Blood Cell (RBC) Count 3.78 mill/uL (4.20-5.40); White Blood Cell (WBC) Count 5.4 10x3/uL (4.8-10.8)
[2022-11-11 12:33] LABS: BHCG - Serum Negative (NEGATIVE); Pregs Control Background? CLEAR/WHITE (CLR/WHITE); Pregs Control Bar Appear? YES (CONTROL BAR)
[2022-11-11 12:48] LABS: ALT (SGPT) 29 U/L (8-55); AST (SGOT) 47 U/L (5-34); Albumin 4.1 g/dL (3.5-5.0); Alkaline Phosphatase 38 U/L (40-110); Anion Gap 11 mmol/L (10-20); BUN (Urea Nitrogen) 18 mg/dL (7.0-18.7); Bilirubin, Total 0.7 mg/dL (0.2-1.2); Calc. Creatinine Clearance 0 mL/min (70-130); Calcium 8.6 mg/dL (7.8-10.44); Carbon Dioxide 23 mmol/L (22-29); Chloride 107 mmol/L (98-107); Estimated GFR 51; Globulin 3.1 g/dL (2.4-3.5); Glucose 75 mg/dL (70-105); Potassium 3.9 mmol/L (3.5-5.1); Protein, Total 7.2 g/dL (6.0-8.3); Sodium 137 mmol/L (136-145)
[2022-11-11 12:53] LABS: Anisocytosis SLIGHT = 6-15 cells (100X) (0-5/hpf); Hypochromia SLIGHT = 6-15 cells (100X) (0-5/hpf); MDiff Complete? YES; Microcytosis MODERATE=15-30 cells (100X) (0-5/hpf); Ovalocytes SLIGHT = 2-5 cells (100X) (0-1/hpf); Platelet Morphology Comment Appears Adequate; Polychromasia SLIGHT = 2-3 cells (100X) (0-2/hpf); Target Cells SLIGHT = 2-5 cells (100X) (0-1/hpf); Tear Drops SLIGHT = 2-5 cells (100X) (0-1/hpf)
[2022-11-11 13:29] LABS: Iron 15 ug/dL (50-170); Iron Binding Capacity, Total 448 mcg/dL (265-497)
[2022-11-11] MEDS ORDERED: Iopamidol-370 76% 500 ML 1 ML ONE (15:11)
[2022-11-11] MEDS ORDERED: GoLYTELY 4,000 ml Bottle PO SCH (16:45)
[2022-11-11] MEDS ORDERED: Ondansetron PF 4 MG/2 ML Vial IVP PRN (19:30)
[2022-11-11] MEDS ORDERED: Ondansetron ODT 4 MG TAB SL PRN (19:30)
[2022-11-11] MEDS ORDERED: Acetaminophen 325 MG TAB PO PRN (19:30)
[2022-11-11 21:10] LABS: Bacteria/HPF None Seen HPF (None Seen); RBC/HPF 0-3 HPF (0-3)
[2022-11-11 21:25] LABS: Bilirubin Negative (Negative); Blood, Urine Negative (Negative); Clarity Clear (Clear); Glucose, Urine (Dipstick) Normal (Negative); Ketone, Urine Negative (Negative); Leukocyte 250 Leu/uL (Negative); Nitrite Negative (Negative); Protein, Urine (Dipstick) Negative (Neg-Trace); Specific Gravity, Urine 1.029 (1.002-1.036); Urobilinogen Normal mg/dL (Less than 2); pH, Urine 6.5 (5.0-9.0)
[2022-11-11] MEDS ORDERED: Levothyroxine Sodium 125 MCG TAB PO SCH (21:30)
[2022-11-12 01:12] LABS: SARS-CoV-2 NAA Rapid Test Not Detected (NotDetected)
[2022-11-12] MEDS ORDERED: Ondansetron PF 4 MG/2 ML Vial IVP PRN (04:48)
[2022-11-12] MEDS ORDERED: Ondansetron ODT 4 MG TAB PO PRN (04:48)
[2022-11-12 05:13] LABS: Hemoglobin 9.9 g/dL (12.0-16.0)
[2022-11-12] MEDS: Acetaminophen 325 MG TAB PO PRN (05:35)
[2022-11-12] MEDS: Levothyroxine Sodium 125 MCG TAB PO SCH (05:35)
[2022-11-12] MEDS ORDERED: Lisinopril/Hydrochlorothiazide 10 mg/12.5 mg Tablet PO SCH (09:00)
[2022-11-12] MEDS: busPIRone HCl 10 MG TAB PO SCH (11:17)
[2022-11-12 19:41] VITALS: BMI 39.3
[2022-11-12] MEDS ORDERED: Sodium Chloride 0.9% 500 ML IV SCH (23:30)
[2022-11-12 23:45] LABS: #Lymphocytes 1.4 thou/uL (1.20-3.40); #Monocytes 0.3 thou/uL (0.11-0.59); #Neutrophils 3.3 thou/uL (1.40-6.50); %Basophils 0.2 % (0.0-1.0); %Lymphocytes 28.5 % (21.0-51.0); %Monocytes 5.4 % (0.0-10.0); %Neutrophils 65.8 % (42.0-75.0); Hemoglobin 9.5 g/dL (12.0-16.0); Mean Corpuscular HGB CONC 31.1 g/dL (32.0-36.0); Mean Corpuscular Hemoglobin 22.3 pg (27.0-31.0); Mean Corpuscular Volume 71.8 fl (78.0-98.0); Mean Platelet Volume 8.7 fL (7.4-10.4); Platelet Count 258 10x3/uL (130-400); Red Blood Cell (RBC) Count 4.26 mill/uL (4.20-5.40)
[2022-11-13 05:03] LABS: ALT (SGPT) 21 U/L (8-55); AST (SGOT) 34 U/L (5-34); Albumin 3.7 g/dL (3.5-5.0); Alkaline Phosphatase 36 U/L (40-110); Anion Gap 13 mmol/L (10-20); BUN (Urea Nitrogen) 9 mg/dL (7.0-18.7); Calc. Creatinine Clearance 107 mL/min (70-130); Calcium 8.6 mg/dL (7.8-10.44); Carbon Dioxide 22 mmol/L (22-29); Chloride 106 mmol/L (98-107); Estimated GFR 68; Glucose 96 mg/dL (70-105); Magnesium 2.3 mg/dL (1.6-2.6); Potassium 3.4 mmol/L (3.5-5.1); Protein, Total 6.7 g/dL (6.0-8.3); Sodium 138 mmol/L (136-145)
[2022-11-13 06:12] LABS: Bilirubin, Total 1.3 mg/dL (0.2-1.2)
[2022-11-13] MEDS: Levothyroxine Sodium 125 MCG TAB PO SCH (06:24)
[2022-11-13] MEDS: Acetaminophen 325 MG TAB PO PRN (06:24)
[2022-11-13] MEDS ORDERED: Midazolam HCl 2 mg/2 ml Vial ONE (08:06)
[2022-11-13] MEDS ORDERED: FENTANYL 50 MCG/ML 1 ML VIAL ONE (08:06)
[2022-11-13] MEDS ORDERED: PROPOFOL 200 MG/20 ML VIAL ONE (08:21)
[2022-11-13] MEDS ORDERED: Ondansetron HCl/PF 4 MG/2 ML Vial IVP PRN (09:04)
[2022-11-13] MEDS ORDERED: Promethazine HCl 25 MG/ML VIAL IVPB PRN (09:04)
[2022-11-13] MEDS ORDERED: Promethazine HCl 25 MG/ML VIAL IM PRN (09:04)
[2022-11-13] MEDS: busPIRone HCl 10 MG TAB PO SCH (10:13)
[2022-11-13] MEDS: Potassium Chloride 20 MEQ in Premix Bag 1 BAG IVPB SCH ×2 (10:28→20:26)
[2022-11-13] MEDS ORDERED: Potassium Chloride 20 MEQ TAB PO SCH (19:15)
[2022-11-13] MEDS: Ferrous Sulfate 325 MG TAB PO SCH (20:25)
[2022-11-13] MEDS ORDERED: Tamsulosin HCl 0.4 MG CAP PO SCH (21:00)
[2022-11-14 05:07] LABS: #Lymphocytes 1.5 thou/uL (1.20-3.40); #Monocytes 0.3 thou/uL (0.11-0.59); %Basophils 0.3 % (0.0-1.0); %Eosinophils 0.1 % (0.0-10.0); %Lymphocytes 31.4 % (21.0-51.0); %Monocytes 5.9 % (0.0-10.0); %Neutrophils 62.3 % (42.0-75.0); Hemoglobin 9.5 g/dL (12.0-16.0); Mean Corpuscular HGB CONC 30.8 g/dL (32.0-36.0); Mean Corpuscular Hemoglobin 22.5 pg (27.0-31.0); Platelet Count 255 10x3/uL (130-400); RBC Distribution Width 19.4 % (11.5-14.5); Red Blood Cell (RBC) Count 4.22 mill/uL (4.20-5.40); White Blood Cell (WBC) Count 4.8 10x3/uL (4.8-10.8)
[2022-11-14] MEDS: Levothyroxine Sodium 125 MCG TAB PO SCH (05:11)
[2022-11-14] MEDS: Acetaminophen 325 MG TAB PO PRN (05:11)
[2022-11-14 05:33] LABS: Anion Gap 12 mmol/L (10-20); BUN (Urea Nitrogen) 12 mg/dL (7.0-18.7); Calc. Creatinine Clearance 110 mL/min (70-130); Calcium 8.3 mg/dL (7.8-10.44); Carbon Dioxide 22 mmol/L (22-29); Chloride 109 mmol/L (98-107); Estimated GFR 70; Glucose 81 mg/dL (70-105); Magnesium 2.3 mg/dL (1.6-2.6); Potassium 4.1 mmol/L (3.5-5.1); Sodium 139 mmol/L (136-145)
[2022-11-14 09:08] VITALS: BP 108/64; TEMP 98.4
[2022-11-14] MEDS: Ferrous Sulfate 325 MG TAB PO SCH (09:25)
[2022-11-14] MEDS: busPIRone HCl 10 MG TAB PO SCH (09:25)
== END 2022-11-14 14:45 | disposition home or self-care (01) | DRG 812 ==
LOC: ERS 11:38 → ERHOLD 13:25 → 2NO 17:36 → OBSVTOIN 11-12 17:33
PROVIDERS: ADMIT Internal Medicine; ATTEND Internal Medicine
PROC: 30233N1 Transfusion of Nonautologous Red Blood Cells into Peripheral Vein, Percutaneous Approach (ICD-10-PCS; principal; 2022-11-11)
PROC: 0DB98ZX Excision of Duodenum, Via Natural or Artificial Opening Endoscopic, Diagnostic (ICD-10-PCS; 2022-11-13)
PROC: 0DJD8ZZ Inspection of Lower Intestinal Tract, Via Natural or Artificial Opening Endoscopic (ICD-10-PCS; 2022-11-13)
DX: D50.9 Iron deficiency anemia, unspecified (principal); N13.30 Unspecified hydronephrosis; R00.1 Bradycardia, unspecified; Z20.822 Contact with and (suspected) exposure to COVID-19; E03.9 Hypothyroidism, unspecified; F17.210 Nicotine dependence, cigarettes, uncomplicated; N18.30 Chronic kidney disease, stage 3 unspecified; N83.209 Unspecified ovarian cyst, unspecified side; I12.9 Hypertensive chronic kidney disease with stage 1 through stage 4 chronic kidney disease, or unspecified chronic kidney disease; F39 Unspecified mood [affective] disorder; K29.80 Duodenitis without bleeding; Z79.890 Hormone replacement therapy; Z79.899 Other long term (current) drug therapy; Z98.84 Bariatric surgery status; Z91.14 Patient's other noncompliance with medication regimen
CPT/HCPCS: 36415; 36430; 74177; 80048; 80053; 82274; 82607; 82728; 83540; 83550; 83735; 84443; 84484; 84703; 85014; 85018; 85025; 86850; 86900; 86901; 88305; 88342; 93005; 96374; G0378; J2250; J2405; J2704; J3010; J3480; J7030; P9016; Q9967; U0002

== ENCOUNTER 2023-02-11 04:28 | Emergency (ER) | payer BC, SELFPAY ==
[2023-02-11] MEDS ORDERED: Ketorolac Tromethamine 30 MG/ML VIAL ONE (05:12)
[2023-02-11 05:28] LABS: #Lymphocytes 1.4 thou/uL (1.20-3.40); #Monocytes 0.3 thou/uL (0.11-0.59); #Neutrophils 2.7 thou/uL (1.40-6.50); %Basophils 0.2 % (0.0-1.0); %Lymphocytes 31.1 % (21.0-51.0); %Monocytes 7.5 % (0.0-10.0); %Neutrophils 61.2 % (42.0-75.0); Hemoglobin 9.9 g/dL (12.0-16.0); Mean Corpuscular HGB CONC 31.8 g/dL (32.0-36.0); Mean Corpuscular Volume 75.6 fl (78.0-98.0); Mean Platelet Volume 8.8 fL (7.4-10.4); Platelet Count 238 10x3/uL (130-400); RBC Distribution Width 17.1 % (11.5-14.5); Red Blood Cell (RBC) Count 4.11 mill/uL (4.20-5.40); White Blood Cell (WBC) Count 4.4 10x3/uL (4.8-10.8)
[2023-02-11 05:37] LABS: Prothrombin Time 13.3 sec (12.0-14.7)
[2023-02-11 05:38] LABS: PTT 33.2 sec (22.9-36.1)
[2023-02-11 05:46] LABS: ALT (SGPT) 12 U/L (8-55); AST (SGOT) 19 U/L (5-34); Albumin 3.7 g/dL (3.5-5.0); Alkaline Phosphatase 46 U/L (40-110); Anion Gap 11 mmol/L (10-20); BUN (Urea Nitrogen) 15 mg/dL (7.0-18.7); Bilirubin, Total 0.3 mg/dL (0.2-1.2); Calc. Creatinine Clearance 0 mL/min (70-130); Calcium 8.2 mg/dL (7.8-10.44); Carbon Dioxide 21 mmol/L (22-29); Chloride 110 mmol/L (98-107); Estimated GFR 87; Globulin 3.1 g/dL (2.4-3.5); Glucose 84 mg/dL (70-105); Protein, Total 6.8 g/dL (6.0-8.3); Sodium 138 mmol/L (136-145)
== END 2023-02-11 06:30 | disposition home or self-care (01) ==
LOC: ERS 04:28
DX: M32.9 Systemic lupus erythematosus, unspecified (principal)
CPT/HCPCS: 80053; 84443; 85025; 85610; 85730; 96374; J1885

== ENCOUNTER 2023-03-11 16:05 | Emergency (ER) | payer BC ==
[2023-03-11] MEDS ORDERED: Famotidine/PF 20 mg/2ml Vial ONE (16:07)
[2023-03-11] MEDS ORDERED: methylPREDNISolone Sod Succ/PF 125 MG/2 ML VIAL ONE (16:07)
[2023-03-11] MEDS ORDERED: diphenhydrAMINE 50 MG/ML VIAL ONE (16:07)
[2023-03-11] MEDS ORDERED: EPINEPHrine 1 MG/ML VIAL ONE (16:07)
== END 2023-03-11 21:30 | disposition home or self-care (01) ==
LOC: ERS 16:05
DX: T78.04XA Anaphylactic reaction due to fruits and vegetables, initial encounter (principal); E03.9 Hypothyroidism, unspecified; F17.210 Nicotine dependence, cigarettes, uncomplicated
CPT/HCPCS: 93005; 94760; 96372; 96374; 96375; J0171; J1200; J2930; S0028

== ENCOUNTER 2023-07-13 11:19 | Emergency (ER) | payer BC ==
[2023-07-13] MEDS ORDERED: EPINEPHrine 1 MG/ML AMP ONE ×2 (11:22→11:33)
[2023-07-13] MEDS ORDERED: methylPREDNISolone Sod Succ/PF 125 MG/2 ML VIAL ONE ×2 (11:29→11:33)
[2023-07-13] MEDS ORDERED: Famotidine/PF 20 mg/2ml Vial ONE ×2 (11:29→11:33)
[2023-07-13] MEDS ORDERED: diphenhydrAMINE 50 MG/ML VIAL ONE ×2 (11:29→11:33)
[2023-07-13 11:36] LABS: #Monocytes 0.3 thou/uL (0.11-0.59); #Neutrophils 2.6 thou/uL (1.40-6.50); %Basophils 0.4 % (0.0-1.0); %Lymphocytes 37.2 % (21.0-51.0); %Monocytes 5.6 % (0.0-10.0); %Neutrophils 56.6 % (42.0-75.0); Hematocrit 30.5 % (36.0-47.0); Mean Corpuscular HGB CONC 29.5 g/dL (32.0-36.0); Mean Corpuscular Hemoglobin 21.9 pg (27.0-31.0); Mean Corpuscular Volume 74.2 fl (78.0-98.0); Mean Platelet Volume 9.7 fL (7.4-10.4); Platelet Count 294 10x3/uL (130-400); RBC Distribution Width 16.6 % (11.5-14.5); Red Blood Cell (RBC) Count 4.11 mill/uL (4.20-5.40); White Blood Cell (WBC) Count 4.7 10x3/uL (4.8-10.8)
[2023-07-13 11:51] LABS: BHCG - Serum Negative (NEGATIVE); Pregs Control Background? CLEAR/WHITE (CLR/WHITE); Pregs Control Bar Appear? YES (CONTROL BAR)
[2023-07-13 12:05] LABS: Anisocytosis SLIGHT = 6-15 cells HPF (0-5); CellaVision Operator ID lab.dlt; Hypochromia SLIGHT = 6-15 cells HPF (0-5); Ovalocytes SLIGHT = 2-5 cells HPF (0-1); Platelet Adequacy Comment Platelets Normal; Poikilocytosis SLIGHT = 6-15 cells HPF (0-5)
[2023-07-13 12:07] LABS: ALT (SGPT) 29 U/L (8-55); AST (SGOT) 59 U/L (5-34); Albumin 4.3 g/dL (3.5-5.0); Alkaline Phosphatase 41 U/L (40-110); Anion Gap 11 mmol/L (10-20); BUN (Urea Nitrogen) 23 mg/dL (7.0-18.7); Bilirubin, Total 0.5 mg/dL (0.2-1.2); Calc. Creatinine Clearance 0 mL/min (70-130); Carbon Dioxide 24 mmol/L (22-29); Chloride 106 mmol/L (98-107); Estimated GFR 54; Globulin 3.5 g/dL (2.4-3.5); Glucose 81 mg/dL (70-105); Potassium 4.3 mmol/L (3.5-5.1); Protein, Total 7.8 g/dL (6.0-8.3); Sodium 137 mmol/L (136-145)
== END 2023-07-13 13:40 | disposition home or self-care (01) ==
LOC: ERS 11:19
DX: T78.04XA Anaphylactic reaction due to fruits and vegetables, initial encounter (principal); D64.9 Anemia, unspecified; F17.210 Nicotine dependence, cigarettes, uncomplicated
CPT/HCPCS: 80053; 84703; 85025; 96361; 96372; 96374; 96375; J0171; J1200; J2930; S0028

== ENCOUNTER 2023-10-14 09:46 | Emergency (ER) | payer BC ==
[2023-10-14] MEDS ORDERED: Ketorolac Tromethamine 30 MG/ML VIAL ONE (10:23)
== END 2023-10-14 10:38 | disposition home or self-care (01) ==
LOC: ERS 09:46
DX: M54.42 Lumbago with sciatica, left side (principal); E03.9 Hypothyroidism, unspecified; F17.210 Nicotine dependence, cigarettes, uncomplicated
CPT/HCPCS: 96372; 99283; J1885

== ENCOUNTER 2023-12-01 16:47 | Emergency (ER) | payer BC ==
[2023-12-01] MEDS ORDERED: Iron, Sodium Ferric Gluconate 250 MG in Sodium Chloride 0.9% 250 ML 250 ML IVPB SCH (17:30)
[2023-12-01 17:39] LABS: #Monocytes 0.3 thou/uL (0.11-0.59); %Basophils 0.4 % (0.0-1.0); %Eosinophils 0.4 % (0.0-10.0); %Lymphocytes 34.6 % (21.0-51.0); %Monocytes 5.2 % (0.0-10.0); %Neutrophils 59.4 % (42.0-75.0); Hematocrit 25.4 % (36.0-47.0); Hemoglobin 6.9 g/dL (12.0-16.0); Mean Corpuscular HGB CONC 27.2 g/dL (32.0-36.0); Mean Corpuscular Hemoglobin 19.2 pg (27.0-31.0); Mean Corpuscular Volume 70.6 fl (78.0-98.0); Mean Platelet Volume 9.2 fL (7.4-10.4); Platelet Count 341 10x3/uL (130-400); RBC Distribution Width 16.4 % (11.5-14.5)
[2023-12-01 18:10] LABS: Anion Gap 9 mmol/L (10-20); BUN (Urea Nitrogen) 20 mg/dL (7.0-18.7); Calc. Creatinine Clearance 0 mL/min (70-130); Calcium 8.7 mg/dL (7.8-10.44); Carbon Dioxide 25 mmol/L (22-29); Chloride 107 mmol/L (98-107); Estimated GFR 75; Glucose 88 mg/dL (70-105); Sodium 137 mmol/L (136-145)
== END 2023-12-01 22:32 | disposition home or self-care (01) ==
LOC: ERS 16:47
DX: D50.9 Iron deficiency anemia, unspecified (principal); E03.9 Hypothyroidism, unspecified; F17.210 Nicotine dependence, cigarettes, uncomplicated; Z79.899 Other long term (current) drug therapy
CPT/HCPCS: 36415; 36430; 80048; 85025; 86850; 86900; 86901; 96365; 96366; J2916; J7050; P9016

== ENCOUNTER 2024-05-20 10:16 | Emergency (ER) | payer BC ==
[2024-05-20 11:21] LABS: #Basophils Less than 0.03 10x3/uL (0.0-0.2); #Eosinphils Less than 0.03 10x3/uL (0.0-0.7); %Basophils 0.2 % (0.0-1.0); %Lymphocytes 18.3 % (21.0-51.0); %Neutrophils 76.3 % (42.0-75.0); Hematocrit 41.4 % (36.0-47.0); Hemoglobin 13.6 g/dL (12.0-16.0); Mean Corpuscular HGB CONC 32.9 g/dL (32.0-36.0); Mean Corpuscular Volume 85.4 fL (78.0-98.0); Mean Platelet Volume 9.6 fL (7.4-10.4); Platelet Count 270 10x3/uL (130-400); RBC Distribution Width 19.8 % (11.5-14.5); Red Blood Cell (RBC) Count 4.85 mill/uL (4.20-5.40)
[2024-05-20 11:31] LABS: BHCG - Serum Negative (NEGATIVE); Pregs Control Background? CLEAR/WHITE (CLR/WHITE); Pregs Control Bar Appear? YES (CONTROL BAR)
[2024-05-20 11:42] LABS: Acetaminophen Less than 10 mcg/mL (10.0-30.0); Alcohol Less than 10.0 mg/dL (Less than 10); Salicylate Less than 8.0 mg/dL (15.0-30.0)
[2024-05-20 11:43] LABS: ALT (SGPT) 18 U/L (8-55); AST (SGOT) 23 U/L (5-34); Albumin 4.1 g/dL (3.5-5.0); Alkaline Phosphatase 51 U/L (40-110); Anion Gap 15 mmol/L (10-20); BUN (Urea Nitrogen) 12 mg/dL (7.0-18.7); Calc. Creatinine Clearance 0 mL/min (70-130); Calcium 9.4 mg/dL (7.8-10.44); Carbon Dioxide 20 mmol/L (22-29); Chloride 109 mmol/L (98-107); Estimated GFR 80; Globulin 3.6 g/dL (2.4-3.5); Glucose 84 mg/dL (70-105); Potassium 3.8 mmol/L (3.5-5.1); Protein, Total 7.7 g/dL (6.0-8.3); Sodium 140 mmol/L (136-145)
[2024-05-20 11:58] LABS: Bilirubin Negative (Negative); Blood, Urine 2+ (Negative); CAUTI Indications for Culture Dysuria,urgency,freq; Clarity Clear (Clear); Glucose, Urine (Dipstick) Normal (Negative); Ketone, Urine Negative (Negative); Leukocyte 250 Leu/uL (Negative); Nitrite Negative (Negative); Protein, Urine (Dipstick) 20 mg/dL (Neg-Trace); RBC/HPF 0-3 HPF (0-3); Urobilinogen Normal mg/dL (Less than 2); pH, Urine 5.5 (5.0-9.0)
[2024-05-20 11:59] LABS: Bacteria/HPF Rare-Few HPF (None Seen)
[2024-05-20 12:00] LABS: Urine Culture Reflex No No
[2024-05-20 12:04] LABS: Amphetamine Not Detected (NotDetected); Barbiturates Screen Not Detected (NotDetected); Benzodiazepine Screen Not Detected (NotDetected); Cocaine Metabolite Screen Not Detected (NotDetected); Methadone Not Detected (NotDetected); Methamphetamine Not Detected (NotDetected); Opiate Screen Not Detected (NotDetected); Oxycodone Screen Not Detected (NotDetected); Phencyclidine (PCP) Not Detected (NotDetected); THC/Cannabinoid Screen Not Detected (NotDetected); Tricyclic Screen Not Detected (NotDetected)
[2024-05-20 12:04] LABS: Free T4 (Free Thyroxine) 0.76 ng/dL (0.70-1.48); Thyroid Stimulating Hormone 15.4005 uIU/mL (0.35-4.94)
== END 2024-05-20 12:16 | disposition home or self-care (01) ==
LOC: ERS 10:16
DX: R25.1 Tremor, unspecified (principal); E03.9 Hypothyroidism, unspecified; F17.210 Nicotine dependence, cigarettes, uncomplicated; Y92.69 Other specified industrial and construction area as the place of occurrence of the external cause
CPT/HCPCS: 36415; 80053; 80306; 80307; 81001; 84439; 84443; 84703; 85025; 99283

== ENCOUNTER 2024-08-13 04:25 | Emergency (ER) | payer BC ==
[2024-08-13] MEDS ORDERED: diphenhydrAMINE 50 MG/ML VIAL ONE (07:41)
[2024-08-13] MEDS ORDERED: Metoclopramide HCl 10 MG (2 mL) VIAL ONE (07:42)
[2024-08-13] MEDS ORDERED: Ketorolac Tromethamine 30 MG (1 mL) VIAL ONE (07:42)
[2024-08-13 07:56] LABS: #Basophils Less than 0.03 10x3/uL (0.0-0.2); #Eosinphils Less than 0.03 10x3/uL (0.0-0.7); %Basophils 0.4 % (0.0-1.0); %Lymphocytes 28.3 % (21.0-51.0); %Monocytes 5.6 % (0.0-10.0); %Neutrophils 65.5 % (42.0-75.0); Hematocrit 43.3 % (36.0-47.0); Mean Corpuscular HGB CONC 34.6 g/dL (32.0-36.0); Mean Corpuscular Hemoglobin 30.1 pg (27.0-31.0); Mean Corpuscular Volume 86.9 fL (78.0-98.0); Mean Platelet Volume 9.7 fL (7.4-10.4); Platelet Count 216 10x3/uL (130-400); RBC Distribution Width 12.9 % (11.5-14.5); Red Blood Cell (RBC) Count 4.98 mill/uL (4.20-5.40)
[2024-08-13 08:10] LABS: Anion Gap 12 mmol/L (10-20); BUN (Urea Nitrogen) 18 mg/dL (7.0-18.7); Calc. Creatinine Clearance 0 mL/min (70-130); Carbon Dioxide 29 mmol/L (22-29); Chloride 106 mmol/L (98-107); Potassium 4.5 mmol/L (3.5-5.1); Sodium 142 mmol/L (136-145)
[2024-08-13 08:11] LABS: ALT (SGPT) 26 U/L (8-55); AST (SGOT) 37 U/L (5-34); Albumin 4.1 g/dL (3.5-5.0); Alkaline Phosphatase 50 U/L (40-110); Calcium 9.5 mg/dL (7.8-10.44); Estimated GFR 66; Globulin 3.6 g/dL (2.4-3.5); Glucose 79 mg/dL (70-105); Protein, Total 7.7 g/dL (6.0-8.3)
== END 2024-08-13 09:40 | disposition home or self-care (01) ==
LOC: ERS 04:25
DX: R51.9 Headache, unspecified (principal); M77.31 Calcaneal spur, right foot; E03.9 Hypothyroidism, unspecified; M32.9 Systemic lupus erythematosus, unspecified; F17.210 Nicotine dependence, cigarettes, uncomplicated; Z55.6 Problems related to health literacy
CPT/HCPCS: 36415; 70450; 80053; 85025; 96361; 96374; 96375; J1200; J1885; J2765

== ENCOUNTER 2024-10-19 09:28 | Emergency (ER) | payer BC ==
[2024-10-19] MEDS ORDERED: methylPREDNISolone Sod Succ/PF 125 MG/2 ML VIAL ONE (10:27)
== END 2024-10-19 12:40 | disposition home or self-care (01) ==
LOC: ERS 09:28
DX: T78.1XXA Other adverse food reactions, not elsewhere classified, initial encounter (principal); F17.210 Nicotine dependence, cigarettes, uncomplicated
CPT/HCPCS: 93005; 96374; J2919